=== PATIENT | female | born 1950 | race Caucasian/White ===

== ENCOUNTER 2016-07-29 18:17 | Observation (INO) | payer MEDICARE ==
[~2016-07-29] VITALS: Ht 165.1 cm; Wt 53.5 kg
--- NOTE | ~2016-07-29 | HEMODYNAMI ---
PATIENT:DAIANA BARTLETT MEDICAL RECORD: [id number] : 46 [facility] [id number] ADMISSION DATE: 07/29/16 Generatedon:07/30/201610:31 Patient name: DAIANA BARTLETT Patient #: [id number] SSN: : 1950 Date of study: 07/30/2016 Page: Of Hemodynamic Procedure Report Patient Data Patient Demographics Procedure consent was obtained First Name: DAIANA Gender: Female Last Name: DHRUV : 1950 Patient #: [id number] Age: 65 year(s) Race: Additional ID: [id number] Contact details [address]: [address] [place] [address] [place] State: [place] City: [place] Zip code: [address] Past Medical History Allergies: No known allergies Admission Admission Data Admission Date: 07/29/2016 Admission Time: 23:29 Room #: 2124 Lab Results Lab Result Date: 07/29/2016 Lab Result Time: 9:45 Biochemistry Name Units Result Min Max BUN mg/dl 31 --(----)-* 7 18 Creatinine mg/dl 1.2 --(---*)-- 0.6 1.3 CBC Name Units Result Min Max Hematocrit % 45.7 --(-*--)-- 42 54 Hemoglobin g/dl 14.4 --(*---)-- 13.5 17.5 Procedure Procedure Types Cath Procedure Diagnostic Procedure [facility] w/Coronaries Miscellaneous Procedures Moderate Sedation up to 45 minutes Procedure Description Procedure Date Procedure Date: 07/30/2016 Procedure Start Time: 10:17 Procedure End Time: 10:29 Procedure Staff Name Function Hardeep Herrera MD Performing Physician Antoinette Gary RT Scrub Anmol Arias RN Nurse Nino Collier RT Monitor Procedure Data Cath Procedure Fluoroscopy Diagnostic fluoroscopy Total fluoroscopy Time: 2.5 time: 2.5 min min Diagnostic fluoroscopy Total fluoroscopy dose: 250 dose: 250 mGy mGy Contrast Material Contrast Material Type Amount (ml) Isovue 300 60 Entry Location Entry Primary Successful Side Size Upsize Upsize Entry Closure Benavides ccessful Closure Location (Fr) 1 (Fr) 2 (Fr) Remarks Device Remarks Radial Right 6 Fr Mechanical artery Short Compression Estimated blood loss: 5 ml Diagnostic catheters Device Type Used For End Catheter Placement Medtronic Dexterity 5Fr Procedure LOOMIS 4.0 catheter (NO CHARGE) Medtronic Dexterity 5Fr Procedure TRAP 4.0 catheter (NO CHARGE) Procedure Complications No complications Procedure Medications Medication Administration Route Dosage Oxygen NC 2 l/min Heparin Flush Bag added to field 2 bags (1000units/500ml NS) 0.9% NaCl I.V. 100 ml/hr Radial Cocktail added to field 1 syringe (Verapomil 2mg/Nitro 400mcg/Heparin 1500units) Plavix P.O. 75 mg Fentanyl I.V. 50 mcg Versed I.V. 1 mg Fentanyl I.V. 50 mcg Versed I.V. 1 mg Fentanyl I.V. 50 mcg Fentanyl I.V. 50 mcg Versed I.V. 1 mg Radial Cocktail I.A. 1 syringe (Verapomil 2mg/Nitro 400mcg/Heparin 1500units) Hemodynamics Rest HGB: 14.4 (g/dl) Heart Rate: 71 (bpm) Pressure Samples Time Site Value (mmHg) Purpose Heart Use Rate(bpm) 10:20 LV 112/24,13 Snapshot 96 10:21 AO 139/73(103) Pullback 83 10:21 LV 139/12,14 Pullback 83 Gradients Valve Time Site 1 Site 2 Mean SEP/DFP Peak To Heart Use (mmHg) (sec/min) Peak Rate (mmHg) (bpm) Aortic 10:21 LV AO 5 23 0 83 139/12,14 139/73(103) Calculations Valve P-P Mean Valve Index Valve Source Name Gradient Area Flow (cm2) Aortic 0 5 0 5 Snapshots Pre Cath Intra NCS Post Cath Vital Signs Time Heart Resp SPO2 NIBP (mmHg) Rhythm Pain Sedation Rate (ipm) (%) Status Level (bpm) 9:47:15 76 18 93 173/98(142) NSR 0 (11) 10(A) , No pain 9:51:29 75 17 95 182/94(140) NSR 0 (11) 10(A) , No pain 9:55:45 86 19 96 174/96(121) NSR 0 (11) 10(A) , No pain 10:00:01 79 20 95 178/97(125) NSR 0 (11) 10(A) , No pain 10:04:19 75 20 93 181/88(109) NSR 0 (11) 10(A) , No pain 10:08:41 76 18 94 162/81(120) NSR 0 (11) 9(A) , No pain 10:12:55 79 18 94 151/82(120) NSR 0 (11) 9(A) , No pain 10:17:05 82 17 95 148/83(114) NSR 0 (11) 9(A) , No pain 10:21:17 85 16 94 127/75(103) NSR 0 (11) 9(A) , No pain 10:25:25 76 20 94 130/66(102) NSR 0 (11) 9(A) , No pain 10:29:33 75 18 94 135/70(102) NSR 0 (11) 9(A) , No pain Medications Time Medication Route Dose Verified Delivered Reason Notes Effectiveness by by 9:51:05 Oxygen NC 2 l/min Anmol Anmol Per Hugo Arias RN physician RN 9:51:14 Heparin Flush added 2 bags Anmol Henningy used for Bag to Hugo Arias dry primer powder blender (1000units/500ml RN NS) 9:51:23 0.9% NaCl I.V. 100 Anmol Anmol Per ml/hr Hugo Arias RN physician RN 9:51:31 Radial Cocktail added 1 Anmol Anmol used for (Verapomil to syringe Hugo Arias dry primer powder blender 2mg/Nitro RN 400mcg/Heparin 1500units) 9:52:02 Plavix P.O. 75 mg Anmol Anmol for Hugo Arias RN antiplatelet RN therapy 10:03:53 Fentanyl I.V. 50 mcg Anmol Anmol for sedation Hugo Arias RN RN 10:04:00 Versed I.V. 1 mg Anmol Anmol for sedation Hugo Arias RN RN 10:05:32 Fentanyl I.V. 50 mcg Anmol Anmol for sedation Hugo Arias RN RN 10:05:40 Versed I.V. 1 mg Anmol Anmol for sedation Hugo Arias RN RN 10:08:20 Fentanyl I.V. 50 mcg Anmol Corea for sedation Hugo Arias RN RN 10:15:27 Fentanyl I.V. 50 mcg Anmol Corea for sedation Hugo Arias RN RN 10:17:12 Versed I.V. 1 mg Anmol Corea for sedation Hugo Arias RN RN 10:19:42 Radial Cocktail I.A. 1 Anmol Meier for (Verapomil syringe Hugo Lawrence 2mg/Nitro [facility] 400mcg/Heparin 1500units) Procedure Log Time Note 9:20:34 Anmol Arias RN sent for patient. Start room use. 9:27:35 Time tracking: Regular hours 9:27:38 Plan of Care:Hemodynamics will remain stable., Cardiac rhythm will remain stable., Comfort level will be maintained., Respiratory function will remain adequate., Patient/ family verbilizes understanding of procedure., Procedure tolerated without complication., Recovers from procedure without complications.. 9:36:12 Patient received from CVICU to [facility] 2 Alert and oriented. Tansferred to table in Supine position. 9:36:14 Warm blankets applied, and stephie hugger turned on for patient comfort. 9:36:14 Correct patient and procedure confirmed by team. 9:36:15 Signed procedure consent form obtained from patient. 9:36:16 ECG and BP/O2 sat monitors applied to patient. 9:36:17 Full Disclosure recording started 9:46:12 Vital chart was started 9:51:05 Oxygen 2 l/min NC was administered by Anmol Arias RN; Per physician; 9:51:14 Heparin Flush Bag (1000units/500ml NS) 2 bags added to field was administered by Anmol Arias RN; used for procedure; 9:51:23 0.9% NaCl 100 ml/hr I.V. was administered by Anmol Arias RN; Per physician; 9:51:31 Radial Cocktail (Verapomil 2mg/Nitro 400mcg/Heparin 1500units) 1 syringe added to field was administered by Anmol Arias RN; used for procedure; 9:51:41 Baseline sample Acquired. 9:51:49 Rhythm: sinus rhythm 9:52:02 Plavix 75 mg P.O. was administered by Anmol Arias RN; for antiplatelet therapy; 9:53:14 H&P Date Dictated: 07/30/2016 Within 30 days and on chart.. 9:53:26 Pre-procedure instructions explained to patient. 9:53:27 Pre-op teaching completed and patient verbalized understanding. 9:53:59 Family in waiting room. 9:54:01 Patient NPO since Midnight. 9:54:10 Patient allergic to No known allergies 9:54:13 Is the patient allergic to Iodine/contrast media? No. 9:54:15 Is patient on blood thinner?Yes 9:54:17 ACC The patient was administered the following blood thiners within the last 24 hours: ACCPlavix 9:54:18 Patient diabetic? No. 9:54:21 Previous problem with sedation/anesthesia? No ? 9:54:22 Snore? Yes 9:54:22 Sleep apnea? No 9:54:23 Deviated septum? No 9:54:25 Opens mouth fully? Yes 9:54:25 Sticks out tongue? Yes 9:54:29 Airway obstruction? Yes copd 9:54:33 Dentures? Yes OUT 9:54:36 Modified Melvin's test Ulnar < 7 seconds 9:54:38 Patient pain scale 0/10 ?. 9:58:01 IV left forearm D/C'd due to infiltration. 9:58:11 IV started by Anmol Arias RN inleft forearm with a 22 gauge IV catheter with 0.9% NaCl at KVO. 9:58:23 22g IV Catheter opened to sterile field. 9:59:07 Lab Result : BUN 31 mg/dl 9:59:07 Lab Result : Creatinine 1.2 mg/dl 9:59:07 Lab Result : Hemoglobin 14.4 g/dl 9:59:07 Lab Result : Hematocrit 45.7 % 9:59:09 Lab results completed and on chart. 9:59:11 Right Radial & Right Groin area was prepped with chlora-prep and draped in sterile fashion 9:59:13 Alarms reviewed by R. N. 9:59:13 Sharps counted by scrub and verified by R.N. 9:59:15 Use device set Radial Dx 9:59:17 MBrace Wrist Support opened to sterile field. 9:59:18 Tegaderm 4 x 4 opened to sterile field. 9:59:18 Acist Manifold opened to sterile field. 9:59:19 Acist Hand Control opened to sterile field. 9:59:20 Acist Syringe opened to sterile field. 9:59:20 Medline Cath Pack opened to sterile field. 9:59:21 Bag Decanter opened to sterile field. 9:59:21 Terumo 6Fr Slender Glidesheath opened to sterile field. 9:59:22 St Hamilton 260cm J .035 wire opened to sterile field. 9:59:27 Physician arrived :59:28 --------ALL STOP TIME OUT------ 9:59:28 Final Timeout: patient, procedure, and site verified with staff and physician. All members of the team are in agreement. 9:59:29 Right Radial & Right Groin site verified by team. 9:59:33 Physical assessment completed. ASA score P 2 - A patient with mild systemic disease as per Hardeep Herrera MD. 9:59:36 Sedation plan: IV Moderate Sedation Versed, Fentanyl 10:03:08 Zero performed for pressure channel P1 10:03:44 IV Extension Set opened to sterile field. 10:03:53 Fentanyl 50 mcg I.V. was administered by Anmol Arias RN; for sedation; 10:04:00 Versed 1 mg I.V. was administered by Anmol Arias RN; for sedation; 10:05:32 Fentanyl 50 mcg I.V. was administered by Anmol Arias RN; for sedation; 10:05:40 Versed 1 mg I.V. was administered by Anmol Arias RN; for sedation; 10:08:20 Fentanyl 50 mcg I.V. was administered by Anmol Arias RN; for sedation; 10:15:27 Fentanyl 50 mcg I.V. was administered by Anmol Arias RN; for sedation; 10:17:12 Versed 1 mg I.V. was administered by Anmol Arias RN; for sedation; 10:17:41 Procedure started. 10:17:46 Local anesthetic to right radial artery with Lidocaine 2% by Hardeep Herrera MD.INITIAL ACCESS ONLY 10:18:02 A 6 Fr Short sheath was inserted into the Right Radial artery 10:19:42 Radial Cocktail (Verapomil 2mg/Nitro 400mcg/Heparin 1500units) 1 syringe I.A. was administered by Hardeep Herrera MD; for vasodilation; 10:19:56 A Medtronic Dexterity 5Fr LOOMIS 4.0 catheter (NO CHARGE) was advanced over the wire and used for Procedure. 10:20:46 LV gram done using MELENDEZ 10:20:47 LV hemodynamics recorded. 10:20:49 Injector settings: Ml/sec: 5, Volume: 15, 10:20:54 EF : 55 % 10:22:18 Catheter removed. unable to cannulate vessel. 10:23:28 A Medtronic Dexterity 5Fr TRAP 4.0 catheter (NO CHARGE) was advanced over the wire and used for Procedure. 10:24:07 LCA angiography performed. 10:26:23 Catheter removed. 10:26:30 Terumo TR Band Standard opened to sterile field. 10:26:39 Sheath removed intact; hemostasis achieved with Mechanical Compression to the Right Radial artery. 10:26:42 Procedure ended.(Physican Out) 10::53 Fluoroscopy time 02.50 minutes. 10::58 Fluoroscopy dose: 250 mGy 10::58 Flurop Dose total: 250 10:27:54 Contrast amount:Isovue 300 60ml. 10:27:56 Sharps counted by scrub and verified by R.N. 10:27:58 TR band inflated with 11cc of air. 10:27:59 Insertion/operative site no bleeding no hematoma. 10:28:08 Post right radial artery:stable, clean and dry 10:28:10 Post Procedure Pulses reassessed and unchanged 10:28:12 Post-procedure physical assessment completed. ASA score P 2 - A patient with mild systemic disease as per Hardeep Herrera MD. 10:28:15 Post procedure rhythm: unchanged. 10:28:18 Estimated blood loss: 5 ml 10:28:19 Post procedure instruction explained to patient.Patient verbalizes understanding. 10:28:19 Post procedure instruction explained to patient.Patient verbalizes understanding. 10:28:22 Patient needs reinforcement of post procedure teaching. 10:28:53 Procedure type changed to Cath procedure, Diagnostic procedure, LHC, LHC w/Coronaries, Miscellaneous Procedures, Moderate Sedation up to 45 minutes 10:28:55 Procedure and supply charges have been captured, reviewed, submitted and are correct. 10:29:21 Procedure Complication : No complications 10:29:29 Vital chart was stopped 10:29:30 See physician's report for complete and final results. 10:29:31 Report given to PCU. 10:29:33 Patient transfered to PCU with Stretcher. 10:29:35 Procedure ended. 10:29:35 Full Disclosure recording stopped 10:29:45 End room use (Document Last) Device Usage Item Name Manufacture Quantity Catalog Hospital Part Current Minimal Lot# / Number Charge Number Stock Stock Serial# Code 22g IV B. Tellez 1 [id number] 296287 888250 5 Catheter MBrace Advanced 1 [id number] 035596 56007 348889 5 Wrist Vascular Support Dynamics Tegaderm 4 3M 1 1626W 142848 322452 005762 5 x 4 Acist Acist 1 34573 058089 204951 981441 5 Manifold Medical Systems Inc Acist Hand Acist 1 98933 795935 566985 479058 5 Control Medical Systems Inc Acist Acist 1 51841 470267 397429 657469 20 Syringe Medical Systems Inc Medline Cardinal 1 [id number] 915556 15823 802625 5 Cath Pack Health Bag Microtek 1 2002S 779783 17940 152236 5 Decanter Medical Inc. Terumo 6Fr Terumo 1 [id number] 537042 506788 321399 [address] [facility] Hamilton 1 236116 888137 395234 299381 30 260cm J .035 wire IV Hospira 1 50959-66 216252 81337 427949 5 Extension Set Medtronic Medtronic 1 [id number] 136707 812094 5 Dexterity 5Fr LOOMIS 4.0 catheter (NO CHARGE) Medtronic Medtronic 1 [id number] 153177 350877 5 Dexterity 5Fr TRAP 4.0 catheter (NO CHARGE) Terumo TR Terumo 1 [id number] 920694 381726 932464 40 Band Standard Signature Audit [place] Stage Time Signature Unsigned Intra-Procedure 07/30/2016 Nino Collier 10:31:54 AM RT(R) Signatures Monitor : Nino Collier RT Signature : Date : Time : [id number] [place] [address]
--- NOTE | ~2016-07-29 | OP ---
PATIENT NAME: DAIANA BARTLETT MEDICAL RECORD: [id number] :46 LOCATION:D.M2 D.2124 ADMISSION DATE:07/29/16 SURGEON: SANTOS BEDOYA MD DATE OF OPERATION: 07/30/2016 PROCEDURES: Left heart catheterization, selective coronary angiography, right femoral artery approach and right radial artery approach. CATHETERS: A 5-Mongolian sheath, Mobile catheter. The procedure was well tolerated and the patient returned to the oneill. Sheath was removed. TR band was placed. FINDINGS: Left ventriculography in 30-degree MELENDEZ view: Normal wall motion and normal systolic function. CORONARY ANATOMY: Left main: Left main is free of disease. LAD: Free of disease. CIRCUMFLEX: Free of disease. RIGHT CORONARY ARTERY: Area of previous stenting is free of disease. IMPRESSION: Normal systolic function, no evidence of restenosis. No progression of [place] disease. Suspect demand ischemia secondary to obstructive pulmonary disease. TRANSINT:[id number] Voice Confirmation ID: [id number] DOCUMENT ID: [id number] SANTOS BEDOYA MD CC: [id number] DICTATION DATE: 07/30/16 1032 POPCORN CANDY MAKER: 07/30/16 1810 DIS IN 07/30/16 [facility] [address] [id number]
--- NOTE | ~2016-07-29 | HP ---
PATIENT: DAIANA BARTLETT MEDICAL RECORD: [id number] ACCOUNT: [id number] LOCATION:[address] : [birth year] ADMISSION DATE: 07/29/16 HISTORY AND PHYSICAL EXAMINATION HISTORY OF PRESENT ILLNESS: A 65-year-old lady with known history of coronary artery disease, status post intervention, this was done in [place], a longstanding smoking history, COPD on home O2, onset of chest pain yesterday. Has been doing fairly well, doing pulmonary rehabilitation exercises, was presented to the ER with chest pain, found to have positive enzymes ECG shows no acute changes. We are asked to see her concerning her cardiovascular status. PAST MEDICAL HISTORY: 1. History of coronary artery disease as described above. 2. Obstructive pulmonary disease. 3. Osteoarthritis. 4. Dyslipidemia. 5. Chronic pain. ALLERGIES: None known. SOCIAL HISTORY: Lives here in [place], moved in from [place], is able to take care of all ADLs at a slow pace, does try to do coronary rehab exercise on a daily basis. MEDICATIONS: 1. ProAir 2 puffs q.i.d., Flexeril 10 t.i.d. 2. Plavix 75 q. day. 3. Lyrica 75 b.i.d. 4. Oxycodone 80 b.i.d. 5. Boniva 150. REVIEW OF SYSTEMS: The patient reports easy bruising but reports no swollen glands. The patient reports no fever, no night sweats, no significant weight gain, no significant weight loss. No significant exercise tolerance. The patient reports no dry eyes, no irritation, no vision change. Patient reports no difficulty hearing and no ear pain. Patient reports no frequent nose bleeds or nose and sinus problems. Patient reports on arm pain on exertion. No shortness of breath while lying down. No history of heart murmur. Patient reports no cough, no wheezing or coughing up blood. Patient reports no abdominal pain, no vomiting. Normal appetite. No diarrhea and not vomiting blood. No nausea and no constipation. Patient reports no incontinence. No difficulty urinating. No hematuria. No increased frequency. Patient reports no muscle aches. No weakness, no arthralgias, no back pain. No swelling of the extremities. Patient reports no abnormal mole, no jaundice, no rashes. Reports no loss of consciousness. No weakness and no numbness. No seizures, dizziness, or headaches. The patient reports no depression, no sleep disturbance, feeling safe in a relationship and no alcohol abuse. Patient reports on fatigue. Reports no runny nose or sinus pressure. No itching, no hives, and no frequent sneezing. PHYSICAL EXAMINATION: GENERAL: Pleasant female in no acute distress, appears stated age. Blood pressure 120/62, pulse 80 and regular. HEENT: Normocephalic, atraumatic. HISTORY AND PHYSICAL [id number] DHRUV,DAIANA NECK: No JVD or bruit. HEART: Regular, II/ systolic ejection murmur. LUNGS: Slightly prolonged expiratory phase with expiratory wheezes. ABDOMEN: Soft and nontender. EXTREMITIES: Pulses 2+. No edema. NEUROLOGIC: Grossly intact. DIAGNOSTIC DATA: ECG without acute change. IMPRESSION: Acute coronary syndrome, known history of coronary artery disease. PLAN: Angiography, intervention based. TRANSINT:[id number] Voice Confirmation ID: [id number] DOCUMENT ID: [id number] SANTOS BEDOYA MD CC: [id number] DICTATION DATE: 07/30/16820 ANIMAL BREEDER: 07/30/16945 ADM IN [facility] [address] [place] [address]
[~2016-07-29 18:17] MED LIST: BONIVA150 MG PO; CYMBALTA30 MG PO; DALIRESP500 MCG PO; FLORAJEN3 CAPS460 MG PO; IPRAT-ALBUT 0.5-3 ML UPD; LOPRESSOR25 MG PO; LYRICA75 MG PO; OMNICEF300 MG PO; OXY IR30 MG PO; OXYBUTYNIN CHLOR5 MG PO; OXYCODONE HCL5 MG PO; OXYCONTIN40 MG PO; OXYCONTIN80 MG PO; PREDNISONE20 MG PO; PROAIR HFA8.5 GM INH; SINGULAIR10 MG PO; SPIRIVA18 MCG INH; TEMAZEPAM30 MG PO; VIBRAMYCIN 100100 MG PO; ZANTAC150 MG PO
[2016-07-29 22:10] LABS: BASOPHILS 0.1 % (0-2); EOSINOPHILS 1.7 % (0-7); HEMATOCRIT 45.7 % (36.0-48.0); HEMOGLOBIN 14.4 g/dL (12-16); IMMATURE GRANULOCYTES 0.1 % (0-5); LYMPHOCYTES 23.6 % (15-50); MCH 28.6 pg (26.0-34.0); MCHC 31.5 g/dL (31.0-37.0); MCV 90.9 fL (80.0-100.0); MEAN PLATELET VOLUME 10.8 fL (7.4-10.4); MONOCYTES 11.7 % (2-11); NEUTROPHILS 62.8 % (40-80); RBC 5.03 10x6/uL (4.00-5.40); RDW 16.2 % (11.5-14.5); WBC 7.7 10x3/uL (4.8-10.8)
[2016-07-29 22:18] LABS: PLATELET COUNT 174 10x3/uL (130-400)
[2016-07-29 22:41] LABS: CALCIUM 9.7 mg/dL (8.5-10.1); CARBON DIOXIDE 33.2 mmol/L (21.0-32.0); CHLORIDE - SERUM 97 mmol/L (98-107); CKMB 11.3 U/L (0.0-3.6); CREATININE - SERUM 1.2 mg/dL (0.6-1.3); POTASSIUM - SERUM 4.1 mmol/L (3.5-5.1); SODIUM 136 mmol/L (136-145); UREA NITROGEN 31 mg/dL (7-18); eGFR NON AFRICAN AMERICAN 47 mL/min (90-120)
[2016-07-29 22:44] LABS: CALC OSMOLALITY 278 mosm/kg (275-300); CREATINE KINASE 1591 UL (21-215); GLUCOSE 101 mg/dL (74-106)
[2016-07-29 22:46] LABS: TROPONIN-I 0.277 ng/mL (0.000-0.060)
--- NOTE | 2016-07-30 00:41 | NUR ---
received from er via wheelchair,IV-LFA, TELEMTRY IN ON, VITALS ARE STABLE, 02-2L, BED IS LOW, SRX2, AT BEDSIDE, CALL LIGHT IN REACH, WILL MONITOR
[2016-07-30 00:57] VITALS: BP 134/62; BMI 19.7
[2016-07-30] MEDS ORDERED: CYCLOBENZAPRINE10 MG PO (00:57)
[2016-07-30] MEDS ORDERED: PLAVIX75 MG PO (00:59)
--- NOTE | 2016-07-30 02:39 | NUR ---
EKG COMPLETE, DENIES ANY NEEDS, CALL LIGHT IN REACH, BED ALARM ON, WILL CONTINUE WITH CARE OF PLAN
[2016-07-30 06:05] VITALS: BP 120/62
[2016-07-30 08:40] VITALS: BP 152/67
--- NOTE | 2016-07-30 09:39 | NUR ---
CONSENTS SIGNED. PRE-OPS GIVEN. TO SUPERVISOR COOK ROOM BY BED.
--- NOTE | 2016-07-30 10:52 | NUR ---
BACK FROM HISTOLOGIC AIDE. VS WNL. RIGHT WRIST STABLE WITH TR BAND INTACT. WILL MONITOR.
[2016-07-30 11:03] LABS: CALCIUM 9.3 mg/dL (8.5-10.1); CREATININE - SERUM 1.1 mg/dL (0.6-1.3)
[2016-07-30 11:14] LABS: CARBON DIOXIDE 20.9 mmol/L (21.0-32.0); POTASSIUM - SERUM 4.9 mmol/L (3.5-5.1)
[2016-07-30 12:31] VITALS: BP 147/76
[2016-07-30 12:42] VITALS: Ht 165.1 cm; Wt 53.5 kg
[2016-07-30 12:42] LABS: BASOPHILS 0.2 % (0-2); EOSINOPHILS 0 % (0-7); HEMATOCRIT 43.6 % (36.0-48.0); HEMOGLOBIN 15.2 g/dL (12-16); IMMATURE GRANULOCYTES 0.2 % (0-5); LYMPHOCYTES 12.9 % (15-50); MCH 31.8 pg (26.0-34.0); MCHC 34.9 g/dL (31.0-37.0); MCV 91.2 fL (80.0-100.0); MEAN PLATELET VOLUME 10.7 fL (7.4-10.4); MONOCYTES 3.7 % (2-11); PLATELET COUNT 141 10x3/uL (130-400); RBC 4.78 10x6/uL (4.00-5.40); RDW 15.8 % (11.5-14.5); WBC 5.1 10x3/uL (4.8-10.8)
--- NOTE | 2016-07-30 13:32 | NUR ---
TR BAND DCD WITHOUT BLEEDING OR HEMATOMA NOTED. WILL MONITOR.
--- NOTE | 2016-07-30 13:42 | NUR ---
IV AND TELEMTRY DCD. DC PLANS GIVEN. UNDERSTANDING VOICED. ESCORTED TO CAR BY W/C.
== END 2016-07-30 13:52 | disposition home or self-care (01) ==
LOC: D.ER 18:17 → OBSVTIME 23:29 → D.M2 23:29
PROVIDERS: Family Medicine; Nurse Practitioner Acute Care; ADMIT Internal Medicine Interventional Cardiology
DX: I24.8 Other forms of acute ischemic heart disease (principal); I25.10 Atherosclerotic heart disease of native coronary artery without angina pectoris; E78.5 Hyperlipidemia, unspecified; M19.90 Unspecified osteoarthritis, unspecified site; G89.29 Other chronic pain

== ENCOUNTER 2016-08-14 02:11 | Inpatient (IN) | payer MEDICARE, OTHER ==
[~2016-08-14] VITALS: Ht 162.6 cm; Wt 56.7 kg
--- NOTE | ~2016-08-14 | CN ---
PATIENT NAME:DAIANA BARTLETT MEDICAL RECORD: [id number] : 46 LOCATION:D.[address] ADMIT DATE: 08/14/16 ACCOUNT: [id number] CONSULTING PHYSICIAN: DIMITRY JARA MD REFERRING PHYSICIAN: MARGARITO JOY MD DATE OF CONSULTATION: 08/20/2016 Gastroenterology Consultation REFERRING PHYSICIAN: Margarito Joy MD. RESOURCE ANALYST: Dr. Arteaga on an unassigned patient. HISTORY OF PRESENT ILLNESS: The patient is a 65-year-old white female who is basically admitted to the ER with decreased mental status changes. She was found to have marked elevation of her liver enzymes in the thousands. I was asked to see the patient in this regard. She is actually admitted to the hospital about 5 days ago. Her AST was 9000 and her ALT was 6000. Every day, her liver enzymes have improved and currently, her total bilirubin 0.8, AST 62, ALT is 49, alkaline phosphatase 116, albumin 2.5. Ultrasound of the gallbladder reveals some sludge, but otherwise negative other than fatty liver and a right pleural effusion. Abdominal CT reveals a possible left lower lobe pneumonia as well as sludge in her gallbladder. The patient has no past history of liver disease and no history of any alcohol use. She denies any abdominal pain, nausea or vomiting. She is tolerating a regular diet. ALLERGIES: STADOL, PHENERGAN. PAST MEDICAL HISTORY: Remarkable for seizures, fibromyalgia, hypertension, coronary artery disease, status post PTCA. She also has CHF; COPD, is on BiPAP/CPAP at her home. She also has some reflux, depression, anxiety. PAST SURGICAL HISTORY: Remarkable for hysterectomy, exploratory laparotomy for unclear reasons. She has had a right hip surgery and back surgery. HOME MEDICATIONS: Include Lyrica, OxyContin, DuoNeb, Boniva, ProAir, temazepam, Flexeril, and Plavix. FAMILY HISTORY: Negative for GI disease. SOCIAL HISTORY: The patient is a longtime smoker. She denies alcohol use. REVIEW OF SYSTEMS: Noncontributory other than HPI. PHYSICAL EXAMINATION: GENERAL: Reveals a well-developed, well-nourished white female in no acute distress. VITAL SIGNS: Stable. She is afebrile. CHEST: Clear. HEART: Regular rate and rhythm. ABDOMEN: Soft, nontender. EXTREMITIES: There is no edema. CONSULT REPORT [id number] DAIANA BARTLETT LABORATORY DATA: Reveals white count 6000, hematocrit 42, MCV of 92, platelet count 120,000. Electrolytes normal. BUN 9, creatinine 1.4. Liver enzymes are as above. Ammonia levels 22. INR is 2.85. Urine drug screen is positive for opiates and benzodiazepines. UA is negative. X-RAY DATA: As above. IMPRESSION: Marked elevation of liver enzymes on admission, now much improved. This looks almost certainly due to shock liver. She has no past history of liver disease, alcohol history or taking any meds that could do this while I can tell. She is asymptomatic from GI standpoint and wants to go home. RECOMMENDATION: 1. Agree with present care. 2. Okay for discharge planning from GI standpoint. 3. I will order some routine liver labs as baseline, but I expect them all to be negative. 4. We will see on a p.r.n. basis. TRANSINT:[id number] Voice Confirmation ID: [id number] DOCUMENT ID: [id number] DIMITRY JARA MD CC: MARGARITO JOY MD [id number] DICTATION DATE: 08/20/16 1317 PLATE ROLLER: 08/20/16 1402 ADM IN [facility] [address] [id number]
[~2016-08-14 02:11] MED LIST changes: +CYCLOBENZAPRINE10 MG PO; +PLAVIX75 MG PO
[2016-08-14 03:07] LABS: BASOPHILS 0.1 % (0-2); EOSINOPHILS 0.2 % (0-7); HEMATOCRIT 44.9 % (36.0-48.0); HEMOGLOBIN 14.2 g/dL (12-16); IMMATURE GRANULOCYTES 0.3 % (0-5); LYMPHOCYTES 5.5 % (15-50); MCH 28.5 pg (26.0-34.0); MCHC 31.6 g/dL (31.0-37.0); MEAN PLATELET VOLUME 10.6 fL (7.4-10.4); MONOCYTES 3.8 % (2-11); NEUTROPHILS 90.1 % (40-80); PLATELET COUNT 130 10x3/uL (130-400); RBC 4.99 10x6/uL (4.00-5.40); RDW 18.3 % (11.5-14.5); WBC 15.7 10x3/uL (4.8-10.8)
[2016-08-14 03:25] LABS: ALBUMIN 3.2 g/dL (3.4-5.0); ALKALINE PHOSPHATASE 161 U/L (46-116); BILIRUBIN - TOTAL 2.58 mg/dL (0.2-1.3); CALCIUM 7.7 mg/dL (8.5-10.1); CHLORIDE - SERUM 97 mmol/L (98-107); CREATININE - SERUM 2.2 mg/dL (0.6-1.3); POTASSIUM - SERUM 4.4 mmol/L (3.5-5.1); PROTEIN - SERUM 6.2 g/dL (6.4-8.2); SODIUM 138 mmol/L (136-145); UREA NITROGEN 50 mg/dL (7-18); eGFR NON AFRICAN AMERICAN 24 mL/min (90-120)
[2016-08-14 03:27] LABS: CALC OSMOLALITY 288 mosm/kg (275-300); GLUCOSE 102 mg/dL (74-106)
[2016-08-14 03:39] LABS: ALT (SGPT) 4604 U/L (10-68)
[2016-08-14 04:08] LABS: INR 2.85 (0.85-1.17); PROTIME 30.2 SECONDS (11.6-15.0)
[2016-08-14 04:29] LABS: AMYLASE - SERUM 30 U/L (25-115); CKMB 26.7 U/L (0.0-3.6); LIPASE 118 U/L (73-393); PRO BNP 7646 pg/mL (0-125)
[2016-08-14 04:34] LABS: CREATINE KINASE 1140 UL (21-215)
[2016-08-14 04:35] LABS: TROPONIN-I 1.096 ng/mL (0.000-0.060)
[2016-08-14 07:08] LABS: UDS - AMPHET NEGATIVE QUAL (NEGATIVE); UDS - BARB NEGATIVE QUAL (NEGATIVE); UDS - BENZO POSITIVE QUAL (NEGATIVE); UDS - COCAINE NEGATIVE QUAL (NEGATIVE); UDS - METH NEGATIVE QUAL (NEGATIVE); UDS - OPIATE POSITIVE QUAL (NEGATIVE); UDS - PCP NEGATIVE QUAL (NEGATIVE); UDS - THC NEGATIVE QUAL (NEGATIVE)
--- NOTE | 2016-08-14 07:10 | NUR ---
PT REPORT REC'D FROM [facility], IN ER. ROOM READY AND AWAITING PT ARRIVAL.
[2016-08-14 07:26] LABS: APPEARANCE CLEAR (CLEAR); BILIRUBIN NEGATIVE (NEGATIVE); COLOR DK YELLOW (YELLOW); GLUCOSE NEGATIVE (NEGATIVE); KETONE NEGATIVE (NEGATIVE); LEUKOCYTE ESTERASE TRACE (NEGATIVE); NITRITE NEGATIVE (NEGATIVE); PROTEIN TRACE mg/dL (NEGATIVE); SPECIFIC GRAVITY 1.015 (1.005-1.020); UROBILINOGEN NORMAL (NORMAL)
[2016-08-14 07:27] LABS: BACTERIA FEW /hpf (NONE SEEN); EPITHELIAL CELLS RARE /hpf (0-5); HYALINE CAST RARE /lpf (NONE SEEN); MUCUS <1+ /lpf (NONE SEEN); RED CELLS - URINE 0-5 /hpf (0-5); WHITE CELLS - URINE RARE /hpf (0-5)
[2016-08-14 07:28] LABS: AMORPHOUS SEDIMENT <1+ /lpf (NONE SEEN)
--- NOTE | 2016-08-14 07:53 | NUR ---
PT REC'D TO ROOM VIA STRETCHER. ACCOMPANIED BY HOSPITAL STAFF. ALERT TO SELF AND SITUATION ONLY. EASILY REORIENTED. FALLS BACK ASLEEP EASILY. PIV TO L FOREARM FREE OF REDNESS AND SWELLING AND FLUSHES W/O RESISTENCE. KAUR CATHETER IN PLACE DRAINING TO GRAVITY. URINE IS SABA W/O SEDIMENT. TELEMETRY PLACED ON AT THIS TIME. BED LOW, CALL LIGHT IN REACH, DENIES NEEDS. CPOC.
[2016-08-14 08:18] VITALS: BP 149/55
[2016-08-14 10:26] VITALS: BMI 21.5
[2016-08-14 11:52] VITALS: BP 131/59
--- NOTE | 2016-08-14 13:02 | NUR ---
SCD'S PLACED ON AT THIS TIME. AT BEDSIDE. UPDATE PROVIDED. PT SLEEPING WITH LUNCH TRAY AT BEDSIDE. BED LOW, CALL LIGHT IN REACH, DENIES NEEDS. CPOC.
[2016-08-14 16:28] VITALS: BP 143/56
--- NOTE | 2016-08-14 19:00 | NUR ---
PATIENT SUPINE IN BED. HOB 50 DEGREES. AAOX4. RR EVEN AND UNLABORED. O2 @ 3L VIA NC. 0 S/S OF DISTRESS. STATES PAIN IS A 10/10. IV TO LEFT FA PATENT WITH NO REDNESS OR SWELLING. KAUR SECURED WITH STATLOCK AND DRAINING TO GRAVITY. TELEMETRY ON. SCD'S ON. ISAC MAT ON. SRX2. BED LOW. CALL LIGHT WITHIN REACH.
[2016-08-14 20:00] VITALS: BP 157/79
--- NOTE | 2016-08-14 21:40 | NUR ---
NIHGTTIME MEDS GIVEN. PATIENT REQUESTING TEMAZEPAM FOR SLEEP. EXPLAINED TO PATIENT THAT I DID NOT WANT TO GIVE HER LYRICA, FLEXERIL, SCHEDULED OXYCOCONE, AND TEMAZEPAM AT THE SAME TIME DUE TO HER BEING SO LETHARGIC AND HARD TO AROUSE DURING DAY SHIFT. PATIENT STATED THAT SHE DOES NOT TAKE LYRICA AT NIGHT AND THAT SHE DIDN'T CARE ABOUT TAKING THE OXYCODONE LONG SHE COULD HAVE HER SLEEP MEDICATION. LYRICA AND OXYCODONE RETURNED. TEMAZEPAM GIVEN. DAUGHTER AT BEDSIDE.
[2016-08-15] VITALS: BP 132/52
[2016-08-15 04:00] VITALS: BP 148/63
[2016-08-15 05:55] LABS: BASOPHILS 0.1 % (0-2); EOSINOPHILS 2.7 % (0-7); HEMATOCRIT 40.6 % (36.0-48.0); HEMOGLOBIN 12.9 g/dL (12-16); IMMATURE GRANULOCYTES 0.1 % (0-5); LYMPHOCYTES 12.5 % (15-50); MCH 28.1 pg (26.0-34.0); MCHC 31.8 g/dL (31.0-37.0); MCV 88.5 fL (80.0-100.0); MEAN PLATELET VOLUME 11.1 fL (7.4-10.4); MONOCYTES 5.7 % (2-11); NEUTROPHILS 78.9 % (40-80); PLATELET COUNT 115 10x3/uL (130-400); RBC 4.59 10x6/uL (4.00-5.40); RDW 18.1 % (11.5-14.5)
[2016-08-15 06:24] LABS: WBC 8.2 10x3/uL (4.8-10.8)
[2016-08-15 06:49] LABS: ALBUMIN 2.4 g/dL (3.4-5.0); BILIRUBIN - TOTAL 1.7 mg/dL (0.2-1.3); CARBON DIOXIDE 31.2 mmol/L (21.0-32.0); MAGNESIUM - SERUM 1.3 mg/dL (1.8-2.4); PHOSPHOROUS 2.9 mg/dL (2.5-4.9); PROTEIN - SERUM 4.9 g/dL (6.4-8.2)
[2016-08-15 06:53] LABS: CREATININE - SERUM 1.2 mg/dL (0.6-1.3)
[2016-08-15 06:54] LABS: ANION GAP 10.3 mmol/L (8-16); POTASSIUM - SERUM 3.5 mmol/L (3.5-5.1)
[2016-08-15 08:07] VITALS: BP 131/61
--- NOTE | 2016-08-15 08:08 | NUR ---
RESTING QUIETLY UPON ENTERING ROOM. PATIENT AROUSED EASILY, THEN CLOSED HER EYES. INTRODUCED SELF TO PATIENT. SCDS TO BILATERAL LEGS, ISAC ALARM ON. PATIENT DENIES NEEDS. ASKED PATIENT IF SHE IS HAVING PAIN, SHE STATED "YES, IT IS ABOUT AN 8 IN MY BACK BECAUSE MY BOWELS NEED TO MOVE.
--- NOTE | 2016-08-15 09:04 | NUR ---
AM MEDS ADMINISTERED. VISITOR IN ROOM. CALL LIGHT IN REACH.
--- NOTE | 2016-08-15 10:39 | NUR ---
BROUGHT PATIENT A CUP OF 8OZ OF WARM PRUNE JUICE MIXED WITH SPRITE
--- NOTE | 2016-08-15 10:57 | NUR ---
LEAVING PATIENT'S SMART PHONE, IT IS ON THE TABLE BESIDE THE BED ON THE SECOND CHEF. SPOKE WITH , EXPLAINED IF ANYTHING HAPPENS TO IT THE HOSPITAL IS NOT RESPONSIBLE. VERBALIZED UNDERSTANDING, STATING "I KNOW, BUT SHE HAS TO HAVE A PHONE."
--- NOTE | 2016-08-15 11:16 | NUR ---
Patient Name: DAIANA BARTLETT Admission Status: ER Accout number: [id number] Admission Date: 08-14-2016 : 1950 Admission Diagnosis: Attending: DYLAN Current LOS: 1 Anticipated DC Date: 08-17-2016 Planned Disposition: Home Primary Insurance: MEDICARE A & B Discharge Planning Comments: CM MET WITH PATIENT AND SPOUSE (JOHN) REGARDING D/C NEEDS AND PLANS. PATIENTS SPOUSE STATED HE WILL DRIVE HER HOME AT DISCHARGE. PATIENTS HOME IS SAFE AND HAS 8 STEPS W/RAILS TO ENTER HOME AND NO STAIRS INSIDE. PATIENT STATED SHE IS INDEPENDENT WITH HER CARE AND HAS OXYGEN 2L HS, PORT O2, NEBULIZER, CANE, WALKER, SHOWER CHAIR, AND BS COMMODE AT HOME IF NEEDED. PATIENTS PCP IS DR. RENDON AND USES [facility] ON [address] PATIENT DENIES THE NEED FOR HOME HEALTH AND STATED SHE DOES NOT WANT IT AT THIS TIME. CM WILL CONTINUE TO FOLLOW PATIENT WITH D/C NEEDS AND PLANS. PCP DR. JUSTICE ADBI ON [address] [phone] JOHN (SPOUSE) [phone] ELISE (DAUGHTER) [phone] Plastic Parts Designer: Subha Ingrid Is the patient Alert and Oriented? Yes 0 * How many steps to enter\exit or inside your home? 8 W/RAILS 0 * PCP DR. RENDON 0 * Pharmacy [facility] ON [address] 0 * Preadmission Environment Home with Family 0 * ADLs Independent 0 * List name and contact numbers for known caregivers / representatives who currently or will assist patient after discharge: JOHN (SPOUSE) [phone] ELISE (DAUGHTER) [phone] 0 * Community resources currently utilized None 0 * Additional services required to return to the preadmission environment? Yes 0 * Can the patient safely return to the preadmission environment? Yes 0 * Has this patient been hospitalized within the prior 30 days at any hospital? No 0 Grand Total: 0
[2016-08-15 12:43] VITALS: Ht 162.6 cm; Wt 56.7 kg
[2016-08-15 13:03] VITALS: BP 117/71; BP 141/50
[2016-08-15 17:18] VITALS: BP 122/69; BP 141/63
[2016-08-15 20:00] VITALS: BP 172/74
[2016-08-16] VITALS: BP 173/114
--- NOTE | 2016-08-16 00:29 | NUR ---
PAGED DR. JUSTICE CARTER, RT REQUEST.
[2016-08-16 04:00] VITALS: BP 151/69
--- NOTE | 2016-08-16 05:23 | NUR ---
RESP. THERAPIST ENTERED RM TO GIVE TX 02 OFF, O2 SATS 49%.NOT VERBALLY RESPONSIVE APPEARS SEDATED. RESPONDS TO SL PAINFUL STIMULI.CARLOS MEEHAN RN FROM ICU HERE NO RESPONSE FROM DR. RENDON.AMP NORCAN GIVEN BY CARLOS MEEHAN RN .TALKING BUT SPEECH GARBLED.SATS 90%.
--- NOTE | 2016-08-16 05:24 | NUR ---
RN NOTE: PT RESTING QUIETLY AT THIS TIME. O2 IN USE VIA NC AT 3L WITH UNLABORED BREATHING. IV IN LEFT FA PATENT WITH NS INFUSING AT KVO. WILL CONTINUE TO MONITOR FOR NEEDS. CALL LIGHT WITHIN REACH.
[2016-08-16 05:29] LABS: BASOPHILS 0.2 % (0-2); EOSINOPHILS 1.8 % (0-7); HEMOGLOBIN 13.5 g/dL (12-16); IMMATURE GRANULOCYTES 0.3 % (0-5); LYMPHOCYTES 10.2 % (15-50); MCH 28.1 pg (26.0-34.0); MCHC 31.4 g/dL (31.0-37.0); MCV 89.4 fL (80.0-100.0); MEAN PLATELET VOLUME 10.2 fL (7.4-10.4); MONOCYTES 10.2 % (2-11); NEUTROPHILS 77.3 % (40-80); PLATELET COUNT 109 10x3/uL (130-400); RBC 4.81 10x6/uL (4.00-5.40); RDW 18.4 % (11.5-14.5); WBC 6.6 10x3/uL (4.8-10.8)
--- NOTE | 2016-08-16 05:33 | NUR ---
0100) RAPID CALLED 02 SATS 95% BUT DESATING QUICKLY.ANOTHER AMP NARCAN GIVEN IV BY CARLOS MEEHAN RN FROM ICU 02 SATS 95% O2 CONTINUES AT 3L/NC.EYES OPENS WHEN NAME CALLED.WILL CONTINUE TO MONITOR FOR ANY CHGES. IN STATUS AND FOLLOW CURRENT PLAN OF CARE.0445)DR. RENDON RETURNED CALL TALKED WITH CARLOS ESQUIVEL
[2016-08-16 06:16] LABS: ALBUMIN 2.5 g/dL (3.4-5.0); ANION GAP 11.6 mmol/L (8-16); BILIRUBIN - TOTAL 1.67 mg/dL (0.2-1.3); CARBON DIOXIDE 30.7 mmol/L (21.0-32.0); POTASSIUM - SERUM 3.3 mmol/L (3.5-5.1); PROTEIN - SERUM 4.8 g/dL (6.4-8.2)
[2016-08-16 06:21] LABS: CALCIUM 6.9 mg/dL (8.5-10.1)
--- NOTE | 2016-08-16 07:35 | NUR ---
PATIENT RECEIVED IN MID CASTELLON POSITION RESTING WITH EYES CLOSED. RESPIRATIONS EVEN AND UNLABORED. SIDE RAILS UP X2. BED IN LOW POSITION. CALL LIGHT IN REACH.
[2016-08-16 08:09] VITALS: BP 150/67
--- NOTE | 2016-08-16 08:23 | NUR ---
2100) prior to rapid discussed with patient to lets take oxy first and wait an hour then take lyrica or flexeril and wait a bit in between those states i talked to dr. lozada this morning and he said i could take my meds the way i took them at home.you can't keep my meds from me.attempted to redirect that not taking your meds from you just wanted to space them out a little as not to take that many narcotic at one time together.became very angry
--- NOTE | 2016-08-16 10:22 | NUR ---
ALERT IN BED WITH FAMILY PRESENT. NO SIGNS OF DISTRESS NOTED. SCHEDULED MEDICATION ADMINISTERED. SIDE RAILS UP X2. BED IN LOW POSITION. CALL LIGHT IN REACH.
--- NOTE | 2016-08-16 12:45 | NUR ---
ALERT IN BED EATING LUNCH WITH ASSIST FROM . NO SIGNS OF DISTRESS NOTED. SIDE RAILS UP X2. BED IN LOW POSITION. CALL LIGHT IN REACH. ISAC ALARM ON.
--- NOTE | 2016-08-16 15:20 | NUR ---
PATIENT IN BED RESTING WITH EYES CLOSED. RESPIRATIONS EVEN AND UNLABORED. PATIENT VERY DROWSY. WAKES UPON STIMULI AND QUICKLY DRIFTS BACK OFF TO SLEEP. NO SIGNS OF DISTRESS NOTED. ISAC ALARM ON. SIDE RAILS UP X2. BED IN LOW POSITION. CALL LIGHT IN REACH.
[2016-08-16 15:33] VITALS: BP 138/64
--- NOTE | 2016-08-16 17:50 | NUR ---
PATIENT IN HIGH CASTELLON POSITION RESTING WITH EYES CLOSED. RESPIRATIONS EVEN AND UNLABORED. AT BEDSIDE. SIDE RAILS UP X2. BED IN LOW POSITION. CALL LIGHT IN REACH.
[2016-08-16 20:00] VITALS: BP 153/61
--- NOTE | 2016-08-16 23:27 | NUR ---
ASSESSED AT THE BEGINNING OF THE SHIFT. PT IS WAS LETHARGIC AND WAS AT THE BEDSIDE. SHE HAS O2 AT [address] WE ALSO HAVE A SET OF SCD'S ON HER AND A KAUR CATH. SHE WAS STARTING TO WAKE UP AT MED TIME AND SHE WAS REQUESTING HER RESTORIL FOR BEDTIME. SHE HAD JUST EATEN ICE CREAM AND SEEMED MORE AWAKE AT THAT TIME. NO OTHER NARCOTICS WERE GIVEN TO HER. AFTER TAKING THIS HER WENT HOME AND SHE RESTED QUIET AND IS NOW SLEEPING. THERE IS A BED ALARM IN PLACE AND SHE IS CLOSE TO THE NURSES STATION TO BE WATCHED WITH THE DOOR OPEN. THE BED IS LOW, RAILS UP X'S 2 WITH THE CALL LIGHT AT HAND.
[2016-08-17] VITALS: BP 143/60
[2016-08-17 04:00] VITALS: BP 147/64
[2016-08-17 05:18] LABS: BASOPHILS 0.3 % (0-2); EOSINOPHILS 8.2 % (0-7); HEMATOCRIT 42.9 % (36.0-48.0); IMMATURE GRANULOCYTES 0.2 % (0-5); LYMPHOCYTES 23.1 % (15-50); MCH 27.8 pg (26.0-34.0); MCHC 30.3 g/dL (31.0-37.0); MEAN PLATELET VOLUME 11.4 fL (7.4-10.4); MONOCYTES 15.2 % (2-11); PLATELET COUNT 120 10x3/uL (130-400); RBC 4.67 10x6/uL (4.00-5.40); WBC 6.5 10x3/uL (4.8-10.8)
[2016-08-17 05:23] LABS: MCV 91.9 fL (80.0-100.0)
[2016-08-17 05:55] LABS: ALBUMIN 2.5 g/dL (3.4-5.0); ANION GAP 10.9 mmol/L (8-16); BILIRUBIN - TOTAL 1.7 mg/dL (0.2-1.3); CALCIUM 7.8 mg/dL (8.5-10.1); CARBON DIOXIDE 31.2 mmol/L (21.0-32.0); POTASSIUM - SERUM 3.1 mmol/L (3.5-5.1); PROTEIN - SERUM 5.1 g/dL (6.4-8.2)
[2016-08-17 08:13] VITALS: BP 148/58
--- NOTE | 2016-08-17 12:11 | NUR ---
NUTRITION MONITORING & EVAL CHART REVIEWED. PT CURRENTLY SLEEPING. DIET ADVANCED TO REG WITH 75% INTAKE BREAKFAST. RD FOLLOWING
[2016-08-17 16:10] VITALS: BP 158/65
[2016-08-17 20:00] VITALS: BP 153/56
[2016-08-18] VITALS: BP 149/61
--- NOTE | 2016-08-18 02:32 | NUR ---
ASSESSED AT THE BEGINNING OF THE SHIFT. PT IS ALERT WHEN AWAKE BUT WAS SLEEPING WELL AT THE BEGINNING OF THE SHIFT. SHE HAS TELEMETRY IN PLACE AND IT IS [address]. THERE ARE SCD'S IN PLACE AND A BED ALARM ON FOR SAFETY. THERE IS STILL A KAUR CATH IN PLACE WITH DARK SABA URINE. HER HAS CALLED TWICE TO CHECK ON HER DURING THE NIGHT BUT HE HAS NOT BEEN HERE. SHE WAS AWAKE FOR A COUPLE OF HRS AT ABOUT 2100 BUT THEN AFTER MEDS AND A SANDWICH TRAY WHICH SHE ATE HALF OF SHE FELL BACK TO SLEEP. THE BED IS LOW, RAILS UP X'S 2 WITH THE CALL LIGHT AT HAND.
[2016-08-18 04:00] VITALS: BP 168/62
[2016-08-18 06:18] LABS: ALBUMIN 2.1 g/dL (3.4-5.0); BILIRUBIN - DIRECT 0.03 mg/dL (0.00-0.30); BILIRUBIN - INDIRECT 1.54 mg/dL (0.00-1.00); BILIRUBIN - TOTAL 1.57 mg/dL (0.2-1.3); PROTEIN - SERUM 5.4 g/dL (6.4-8.2)
--- NOTE | 2016-08-18 07:55 | NUR ---
SLEEPING, NO DISTRESS NOTED, BREATHING EVEN AND UNLABORED, CALL LIGHT IN REACH, BED LOWEST POSITON, WILL CONTINUE TO MONITOR
[2016-08-18 08:14] VITALS: BP 174/70
[2016-08-18 12:05] VITALS: BP 179/72
--- NOTE | 2016-08-18 12:43 | NUR ---
SITTING UP IN BED EATING LUNCH. A/O X3. NO C/O AT THIS TIME. DENIES NEEDS. COMPLETED ORIENTED AT THIS TIME.
[2016-08-18 15:57] VITALS: BP 131/58
--- NOTE | 2016-08-18 19:00 | NUR ---
PATIENT IN BED VISITING WITH FAMILY. HOB 30 DEGREES. AAOX4. RR EVEN AND UNLABORED. O2 @ 3L VIA NC. 0 S/S OF DISTRESS. STATES PAIN IS A 7/10. IV TO LEFT FA S/L WITH NO REDNESS OR SWELLING. TELEMETRY ON. KAUR SECURED WITH STATLOCK AND DRAINING TO GRAVITY. SCD'S IN ROOM BUT OFF. SRX1. BED LOW. CALL LIGHT WITHIN REACH.
[2016-08-18 20:00] VITALS: BP 153/67
--- NOTE | 2016-08-18 22:05 | NUR ---
NIGHTTIME MEDS GIVEN. RESTORIL GIVEN FOR SLEEP. KAUR REMOVED PER ORDER.
[2016-08-19] VITALS: BP 143/56
[2016-08-19 04:00] VITALS: BP 130/75
--- NOTE | 2016-08-19 08:04 | NUR ---
RESTING, DENIES NEEDS, BED LOWEST POSITION, CALL LIGHT IN REACH, WILL CONTINUE TO MONITOR
--- NOTE | 2016-08-19 09:05 | NUR ---
PT SITTING UP AT BEDSIDE AT THIS TIME, NO COMPLAINTS OF PAIN OR DISCOMFORT. IV INFUSING, O2 AT 2L. BED IN LOW POSITION AND CALL LIGHT WITHIN REACH. WILL CONTINUE TO MONITOR.
[2016-08-19 09:29] VITALS: BP 149/61
--- NOTE | 2016-08-19 11:07 | NUR ---
WALKED 500 FT WITH WALKER AND , DENIES NEEDS
[2016-08-19 12:46] VITALS: BP 156/56
[2016-08-19 16:29] VITALS: BP 145/54
--- NOTE | 2016-08-19 19:00 | NUR ---
PATIENT IN BED VISITING WITH FAMILY. HOB 50 DEGREES. AAOX4. RR EVEN AND UNLABORED. O2 @ 3L VIA NC. 0 S/S OF DISTRESS. STATES PAIN IS A 7/10. IV TO LEFT FA S/L WITH NO REDNESS OR SWELLING. TELEMETRY ON. SCD'S IN ROOM BUT OFF. SRX1. BED LOW. CALL LIGHT WITHIN REACH.
[2016-08-19 19:54] LABS: ALBUMIN 2.5 g/dL (3.4-5.0); ANION GAP 11.3 mmol/L (8-16); BILIRUBIN - TOTAL 0.84 mg/dL (0.2-1.3); CALCIUM 8.1 mg/dL (8.5-10.1); CARBON DIOXIDE 31.1 mmol/L (21.0-32.0); POTASSIUM - SERUM 3.4 mmol/L (3.5-5.1)
[2016-08-19 20:00] VITALS: BP 137/66
[2016-08-19 20:01] LABS: CREATININE - SERUM 1.4 mg/dL (0.6-1.3)
--- NOTE | 2016-08-19 21:00 | NUR ---
NIGHTTIME MEDS GIVEN. LACTULOSE REFUSED. RESTORIL GIVEN FOR SLEEP.
--- NOTE | 2016-08-20 03:00 | NUR ---
PATIENT SLEEPING WITH NO DISTRESS NOTED. CALL LIGHT WITHIN REACH.
[2016-08-20 06:20] VITALS: BP 151/62
--- NOTE | 2016-08-20 07:25 | NUR ---
PT AOX4 RESP EVEN AND NONLABORED IV TO LEFT FOREARM PATENT AND INTACT. PT DENIES NEEDS AT THIS TIME BED IN LOWEST SETTING CALL LIGHT WITHIN REACH WILL CONTINUE TO MONITOR SRX2
[2016-08-20 10:15] VITALS: BP 124/47
[2016-08-20 12:54] VITALS: BP 128/52
[2016-08-20] MEDS ORDERED: LYRICA25 MG PO (16:45)
[2016-08-20] MEDS ORDERED: RESTORIL7.5 MG PO (16:45)
[2016-08-20] MEDS ORDERED: OXYCONTIN40 MG PO (16:46)
[2016-08-20] MEDS ORDERED: LIDODERM 5 %1 PATCH TRANSDERM (16:47)
[2016-08-20] MEDS ORDERED: FLORANEX / LACT1 TAB PO (16:47)
[2016-08-20 16:53] VITALS: BP 128/52
--- NOTE | 2016-08-20 16:59 | NUR ---
medical office secretary advised MAGALIE that patient had discharge to home with home health order. MAGALIE called to speak with the patient as I was on another unit. She declined home health. Stated she had been walking around the unit and doing well. Does not feel she needs home health. MAGALIE advised if she changed her mind to please call her MD's office to have DR order.
--- NOTE | 2016-08-20 18:21 | NUR ---
PAPER PERSCRIPTIONS FOR DISCHARGE NOT SIGNED. PAGED .
--- NOTE | 2016-08-20 18:46 | NUR ---
THE PATIENT AND HER DAUGHTER STATED THEY WOULD BE OKAY WITH GOING TO 'S OFFICE TOMORROW TO MEET UP WITH TO GET THE PERSCRIPTIONS SIGNED. SPOKE WITH TOLD HER WHAT THE PATIENT SAID. SHE STATED "I CAN DO THAT. HAVE THEM MEET ME TOMORROW AT 'S OFFICE AROUND 1000." I STATED "CAN I PUT YOU ON HOLD SO THAT I CAN GET A PHONE NUMBER FOR YOU TO CALL THEM ON IF ANYTHING CHANGES?" SHE STATED "NO CALL ME BACK WITH THE NAME AND NUMBER."
--- NOTE | 2016-08-20 18:53 | NUR ---
SPOKE WITH THE PATIENT AND . GAVE THE PHONE NUMBER THE PATIENT TOLD ME WAS HER CELL PHONE NUMBER: [phone].
--- NOTE | 2016-08-20 18:56 | NUR ---
IV DISCONTINUED WITH CATHETER INTACT AT THIS TIME. PT AND DAUGHTER GIVEN DISCHARGE INSTRUCTIONS AT THIS TIME. PT O2 87% ON ROOM AIR. O2 VIA NC RESTARTED AT THIS TIME WILL RECHECK MOMENTARILY
== END 2016-08-20 20:19 | disposition home health service (06) | DRG 441 ==
LOC: D.ER 02:11 → D.MS 06:50
PROVIDERS: Family Medicine; ADMIT Family Medicine
DX: K72.00 Acute and subacute hepatic failure without coma (principal); J18.9 Pneumonia, unspecified organism; G93.41 Metabolic encephalopathy; J96.20 Acute and chronic respiratory failure, unspecified whether with hypoxia or hypercapnia; G93.49 Other encephalopathy; N17.9 Acute kidney failure, unspecified; J44.0 Chronic obstructive pulmonary disease with (acute) lower respiratory infection; M62.82 Rhabdomyolysis; I25.10 Atherosclerotic heart disease of native coronary artery without angina pectoris; K59.00 Constipation, unspecified; M81.0 Age-related osteoporosis without current pathological fracture; M79.7 Fibromyalgia; M62.830 Muscle spasm of back; W19.XXXA Unspecified fall, initial encounter; M54.9 Dorsalgia, unspecified; M25.552 Pain in left hip; M25.551 Pain in right hip; F17.200 Nicotine dependence, unspecified, uncomplicated

== ENCOUNTER 2016-10-01 04:50 | Emergency (ER) | payer MEDICARE, OTHER ==
[2016-08-15 12:43] VITALS: BMI 21.4
[~2016-10-01 04:50] MED LIST changes: +FLORANEX / LACT1 TAB PO; +LIDODERM 5 %1 PATCH TRANSDERM; +LYRICA25 MG PO; +RESTORIL7.5 MG PO
[2016-10-01 05:49] LABS: BASOPHILS 0.3 % (0-2); EOSINOPHILS 5.3 % (0-7); HEMATOCRIT 48.5 % (36.0-48.0); HEMOGLOBIN 14.8 g/dL (12-16); IMMATURE GRANULOCYTES 0.3 % (0-5); LYMPHOCYTES 22.7 % (15-50); MCH 28.5 pg (26.0-34.0); MCHC 30.5 g/dL (31.0-37.0); MCV 93.3 fL (80.0-100.0); MEAN PLATELET VOLUME 10.2 fL (7.4-10.4); MONOCYTES 11.9 % (2-11); NEUTROPHILS 59.5 % (40-80); RDW 18.7 % (11.5-14.5)
[2016-10-01 05:50] LABS: PLATELET COUNT 173 10x3/uL (130-400)
[2016-10-01 05:55] LABS: ALBUMIN 3.6 g/dL (3.4-5.0); ANION GAP 10.8 mmol/L (8-16); BILIRUBIN - TOTAL 0.34 mg/dL (0.2-1.3); CALCIUM 9.7 mg/dL (8.5-10.1); CARBON DIOXIDE 36.1 mmol/L (21.0-32.0); CREATININE - SERUM 0.9 mg/dL (0.6-1.3); POTASSIUM - SERUM 4.9 mmol/L (3.5-5.1); PROTEIN - SERUM 7.4 g/dL (6.4-8.2)
[2016-10-01 06:35] LABS: APPEARANCE CLEAR (CLEAR); BILIRUBIN NEGATIVE (NEGATIVE); COLOR YELLOW (YELLOW); GLUCOSE NEGATIVE (NEGATIVE); KETONE NEGATIVE (NEGATIVE); LEUKOCYTE ESTERASE NEGATIVE (NEGATIVE); NITRITE NEGATIVE (NEGATIVE); PROTEIN NEGATIVE (NEGATIVE); UROBILINOGEN NORMAL (NORMAL)
[2016-10-01 07:42] LABS: AMYLASE - SERUM 98 U/L (25-115); LIPASE 578 U/L (73-393)
== END 2016-10-01 08:34 | disposition home or self-care (01) ==
LOC: D.ER 04:50
PROVIDERS: Emergency Medicine
DX: K59.00 Constipation, unspecified (principal); J44.9 Chronic obstructive pulmonary disease, unspecified; F17.200 Nicotine dependence, unspecified, uncomplicated

== ENCOUNTER 2017-02-06 17:56 | Inpatient (IN) | payer MEDICARE, OTHER ==
[2016-08-15 12:43] VITALS: BMI 21.4
[2017-02-06 20:08] LABS: BASOPHILS 0.3 % (0-2); EOSINOPHILS 1.3 % (0-7); HEMATOCRIT 48.2 % (36.0-48.0); HEMOGLOBIN 15.6 g/dL (12-16); IMMATURE GRANULOCYTES 0.1 % (0-5); LYMPHOCYTES 20.2 % (15-50); MCH 30.7 pg (26.0-34.0); MCHC 32.4 g/dL (31.0-37.0); MCV 94.9 fL (80.0-100.0); MEAN PLATELET VOLUME 11.1 fL (7.4-10.4); MONOCYTES 8.7 % (2-11); NEUTROPHILS 69.4 % (40-80); RBC 5.08 10x6/uL (4.00-5.40); RDW 14.4 % (11.5-14.5); WBC 7.1 10x3/uL (4.8-10.8)
[2017-02-06 20:16] LABS: ALBUMIN 4.4 g/dL (3.4-5.0); ANION GAP 18.5 mmol/L (8-16); BILIRUBIN - TOTAL 0.84 mg/dL (0.2-1.3); CALCIUM 9.5 mg/dL (8.5-10.1); CARBON DIOXIDE 27.2 mmol/L (21.0-32.0); CREATININE - SERUM 0.9 mg/dL (0.6-1.3); POTASSIUM - SERUM 3.7 mmol/L (3.5-5.1); PROTEIN - SERUM 8.1 g/dL (6.4-8.2)
[2017-02-06 20:27] LABS: PLATELET COUNT 210 10x3/uL (130-400)
[2017-02-06 22:12] LABS: APPEARANCE CLEAR (CLEAR); BILIRUBIN NEGATIVE (NEGATIVE); COLOR YELLOW (YELLOW); GLUCOSE NEGATIVE (NEGATIVE); KETONE MODERATE mg/dL (NEGATIVE); NITRITE NEGATIVE (NEGATIVE); PROTEIN NEGATIVE (NEGATIVE); SPECIFIC GRAVITY 1.015 (1.005-1.020); UROBILINOGEN NORMAL (NORMAL)
[2017-02-06 22:23] LABS: UDS - AMPHET NEGATIVE QUAL (NEGATIVE); UDS - BARB NEGATIVE QUAL (NEGATIVE); UDS - BENZO NEGATIVE QUAL (NEGATIVE); UDS - COCAINE NEGATIVE QUAL (NEGATIVE); UDS - OPIATE POSITIVE QUAL (NEGATIVE); UDS - PCP NEGATIVE QUAL (NEGATIVE); UDS - THC NEGATIVE QUAL (NEGATIVE)
--- NOTE | 2017-02-07 02:05 | NUR ---
Patient refused to sign consents and did not want to stay, patient signed AMA paperwork and left with at 01:15 AM.
--- NOTE | 2017-02-09 10:32 | SS ---
PATIENT:DAIANA BARTLETT :46 MEDICAL RECORD: [id number] DISCHARGE SUMMARY ADMISSION DATE: 02/06/17 DISCHARGE DATE: 02/07/17 HOSPTIAL COURSE: The patient is 66 years old and she was admitted on a voluntary basis to the behavioral unit secondary to some mental status changes. She came to the unit with her family. She was being evaluated by the nurse and she and the family decided not to stay. They were here for about 2 hours, doing some paperwork and left. The patient was not suicidal or homicidal. There were some reports of some psychotic symptoms, but nothing that would indicate that the patient necessitated an involuntary stay and so she was discharged against medical advice. She was not seen by me. No medications or treatment were prescribed and as described above, she was here briefly left against medical advice and is going to be responsible for her own followup. She was told that if they change their mind, we would be happy to reevaluate her and possibly readmit her. TRANSINT:[id number] Voice Confirmation ID: [id number] DOCUMENT ID: [id number] DELTA ESCOTO MD at 1032 CC: [id number] DICTATION DATE: 02/08/17 1231 STUDENT AFFAIRS VICE PRESIDENT: 02/09/17 0141 DIS IN 02/07/17 [facility] [address] [place] [address]
== END 2017-02-07 01:20 | disposition left against medical advice (07) | DRG 885 ==
LOC: D.ER 17:56 → D.PSYCH 23:40
PROVIDERS: Emergency Medicine; ADMIT Psychiatry & Neurology Psychiatry
DX: F23 Brief psychotic disorder (principal)

== ENCOUNTER 2017-02-08 17:27 | Inpatient (IN) | payer MEDICARE, OTHER ==
[~2017-02-08] VITALS: Ht 162.6 cm; Wt 50.8 kg
[2017-02-09 22:05] VITALS: BP 190/63
--- NOTE | 2017-02-09 22:15 | NUR ---
PATIENT IN [place] YELLING. ATTEMPTING TO OPEN LOCKED UNIT DOORS TO LEAVE. KNOCKING ON REHAB DOOR. THINKS HER IS ON OTHER SIDE OF REHAB DOOR AND WAS YELLING AT HER . VERY ANXIOUS. UNABLE TO REDIRECT. PRN ATIVAN 0.5 MG IM GIVEN FOR INCREASING ANXIETY.
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
[2017-02-10 06:40] VITALS: BP 190/63; BMI 18.9
[2017-02-10 06:49] LABS: BASOPHILS 0.3 % (0-2); EOSINOPHILS 6.5 % (0-7); HEMATOCRIT 46.9 % (36.0-48.0); HEMOGLOBIN 15.1 g/dL (12-16); IMMATURE GRANULOCYTES 0.2 % (0-5); LYMPHOCYTES 39.3 % (15-50); MCH 30.4 pg (26.0-34.0); MCHC 32.2 g/dL (31.0-37.0); MCV 94.6 fL (80.0-100.0); MONOCYTES 10.1 % (2-11); NEUTROPHILS 43.6 % (40-80); PLATELET COUNT 191 10x3/uL (130-400); RBC 4.96 10x6/uL (4.00-5.40); RDW 14.5 % (11.5-14.5); WBC 5.8 10x3/uL (4.8-10.8)
[2017-02-10 07:01] LABS: HEMOGLOBIN A1C 5.8 % (4.8-6.0)
[2017-02-10 07:10] LABS: ALBUMIN 3.5 g/dL (3.4-5.0); ANION GAP 11.1 mmol/L (8-16); BILIRUBIN - TOTAL 0.4 mg/dL (0.2-1.3); CARBON DIOXIDE 27.6 mmol/L (21.0-32.0); CHOL - HDL RATIO 2.6 ratio (2.3-4.1); CREATININE - SERUM 0.9 mg/dL (0.6-1.3); LDL-HDL RATIO 1.4 ratio (1.5-3.5); POTASSIUM - SERUM 3.7 mmol/L (3.5-5.1); PROTEIN - SERUM 6.6 g/dL (6.4-8.2); THYROID STIMULATING HORMONE 1.37 uIU/mL (0.36-3.74)
[2017-02-10 08:00] VITALS: BP 167/70
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
[2017-02-10 19:30] VITALS: BP 138/72
--- NOTE | 2017-02-10 22:42 | NUR ---
RECEIVED IN HALLWAY. STANDING OUTSIDE OF NURSES STATION. CALM AND COOPERATIVE WITH CARE AND ASSESSMENTS. NO SIGNS OF PARANOIA. TOOK A SHOWER THIS PM. ATTENTION SEEKING AT TIMES. REDIRECT AND REORIENT NEEDED, RESTING IN BED EYES CLOSED AT THIS TIME. CONTINUE PLAN OF CARE
[2017-02-11 07:33] LABS: APPEARANCE CLEAR (CLEAR); BILIRUBIN NEGATIVE (NEGATIVE); COLOR YELLOW (YELLOW); GLUCOSE NEGATIVE (NEGATIVE); KETONE NEGATIVE (NEGATIVE); NITRITE NEGATIVE (NEGATIVE); PROTEIN NEGATIVE (NEGATIVE); SPECIFIC GRAVITY 1.015 (1.005-1.020); UROBILINOGEN NORMAL (NORMAL)
[2017-02-11 08:44] VITALS: BP 118/43
[2017-02-11 20:14] VITALS: BP 107/42
--- NOTE | 2017-02-12 00:05 | NUR ---
RECEIVED IN HALLWAY. ATTENTION SEEKING. DEMANDING AT TIMES. COMES OUT OF ROOM UP TO NURSES STATION CONSTANTLY. "ALWAYS WITH A DIFFERENT NEED." REFUSING TO FALLOW DIRECTIONS. REDIRECT AND REORIENT NEEDED. SITTING ON HER BED AT THIS TIME. CONTINUE PLAN OF CARE
[2017-02-12 07:29] LABS: FOLATE (FOLIC ACID) - SERUM 10.4 ng/mL (>3.0); RAPID PLASMA REAGIN Non Reactive (Non Reactive); VITAMIN D 25 HYDROXY 20.7 ng/mL (30.0-100.0)
--- NOTE | 2017-02-12 09:00 | NUR ---
COOPERATIVE WITH ASSESSMENT. PRESCRIBED MEDICATIONS GIVEN ORDERED. PATIENT IOS GOING TO DISCHARGE TODAY. ALL DISCHARGE PAPERWORK REVIEWED WITH FAMILY. ALL BELONGINGS BAGGED AND ACCOUNTED FOR.
--- NOTE | 2017-02-12 09:05 | PN ---
PATIENT:DAIANA BARTLETT MEDICAL RECORD: [id number] LOCATION:[facility] ADMISSION DATE: 02/09/17 PROGRESS NOTE DATE OF SERVICE: 02/11/2017 SUBJECTIVE: The patient's case was discussed with staff. She has no new complaint. OBJECTIVE: The patient is in good behavioral control with limited insight about her condition. She generally is tolerating her medicines well. She has not been aggressive. She has no evidence of withdrawal and although she complains of being in pain, she does not seem to be. She insists she must have narcotics and that she has had them for 40 years and that she cannot stop them. There are no paranoid thoughts. She is angry with her , but not threatening towards him. She has a euthymic mood. ASSESSMENT: No change in diagnoses. PLAN: The patient's delirium is clearing and the behaviors that were associated with it are gone. If she maintains this improvement through tomorrow, I am going to discharge her. I continue to think she has a substance use disorder and she is adamant about not wanting to go to treatment. TRANSINT:[id number] Voice Confirmation ID: [id number] DOCUMENT ID: [id number] DELTA ESCOTO MD at 0905 CC: [id number] DICTATION DATE: 02/11/17 1401 TELEGRAPH OPERATOR: 02/11/172121 ADM IN [facility] [address] [place] [address]
[2017-02-12 09:40] VITALS: BP 170/53
[2017-02-12] MEDS ORDERED: LISINOPRIL10 MG PO (09:58)
--- NOTE | 2017-02-12 10:18 | NUR ---
AXEL SPOKE WITH PT'S ABOUT DISCHARGE PLANS FOR TODAY. JOHN VERBALIZED UNDERSTANDING OF THE DISCUSSION AND WILL PICK PT UP AT 1130.
--- NOTE | 2017-02-12 10:35 | NUR ---
AXEL REFERRED PT TO [facility], [facility], AND FOLLOW UP WITH . [facility].
[2017-02-12 13:36] VITALS: Ht 162.6 cm; Wt 50.8 kg
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
== END 2017-02-12 11:00 | disposition home or self-care (01) | DRG 880 ==
LOC: D.PSYCH 17:27
PROVIDERS: ADMIT Psychiatry & Neurology Psychiatry
DX: F05 Delirium due to known physiological condition (principal); F19.20 Other psychoactive substance dependence, uncomplicated; F11.259 Opioid dependence with opioid-induced psychotic disorder, unspecified; I25.10 Atherosclerotic heart disease of native coronary artery without angina pectoris; Z72.0 Tobacco use; M81.0 Age-related osteoporosis without current pathological fracture; I10 Essential (primary) hypertension; J44.9 Chronic obstructive pulmonary disease, unspecified; Z74.09 Other reduced mobility; J30.9 Allergic rhinitis, unspecified; G89.29 Other chronic pain; M54.5 Low back pain; M79.7 Fibromyalgia

== ENCOUNTER 2017-03-05 13:25 | Inpatient (IN) | payer MEDICARE, OTHER ==
[~2017-03-05] VITALS: Ht 162.6 cm; Wt 51.4 kg
[~2017-03-05 13:25] MED LIST changes: +LISINOPRIL10 MG PO
[2017-03-05 14:13] LABS: APPEARANCE HAZY (CLEAR); BACTERIA MANY /hpf (NONE SEEN); BILIRUBIN NEGATIVE (NEGATIVE); COLOR YELLOW (YELLOW); EPITHELIAL CELLS 0-5 /hpf (0-5); GLUCOSE NEGATIVE (NEGATIVE); KETONE NEGATIVE (NEGATIVE); MUCUS <1+ /lpf (NONE SEEN); NITRITE NEGATIVE (NEGATIVE); PROTEIN NEGATIVE (NEGATIVE); RED CELLS - URINE 0-5 /hpf (0-5); UROBILINOGEN NORMAL (NORMAL); WHITE CELLS - URINE 0-5 /hpf (0-5)
[2017-03-05 14:22] LABS: BASOPHILS 0.3 % (0-2); EOSINOPHILS 2.3 % (0-7); HEMATOCRIT 44.9 % (36.0-48.0); HEMOGLOBIN 14.6 g/dL (12-16); IMMATURE GRANULOCYTES 0.2 % (0-5); LYMPHOCYTES 35.2 % (15-50); MCH 30.4 pg (26.0-34.0); MCHC 32.5 g/dL (31.0-37.0); MCV 93.3 fL (80.0-100.0); MEAN PLATELET VOLUME 10.9 fL (7.4-10.4); MONOCYTES 9.6 % (2-11); NEUTROPHILS 52.4 % (40-80); PLATELET COUNT 200 10x3/uL (130-400); RBC 4.81 10x6/uL (4.00-5.40); RDW 14.2 % (11.5-14.5); WBC 6.4 10x3/uL (4.8-10.8)
[2017-03-05 14:23] LABS: UDS - AMPHET NEGATIVE QUAL (NEGATIVE); UDS - BARB NEGATIVE QUAL (NEGATIVE); UDS - BENZO NEGATIVE QUAL (NEGATIVE); UDS - COCAINE NEGATIVE QUAL (NEGATIVE); UDS - OPIATE NEGATIVE QUAL (NEGATIVE); UDS - PCP NEGATIVE QUAL (NEGATIVE); UDS - THC NEGATIVE QUAL (NEGATIVE)
[2017-03-05 14:32] LABS: ALBUMIN 4.3 g/dL (3.4-5.0); ANION GAP 13.9 mmol/L (8-16); BILIRUBIN - TOTAL 0.44 mg/dL (0.2-1.3); CALCIUM 10.2 mg/dL (8.5-10.1); CARBON DIOXIDE 29.2 mmol/L (21.0-32.0); CREATININE - SERUM 0.9 mg/dL (0.6-1.3); POTASSIUM - SERUM 4.1 mmol/L (3.5-5.1)
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
[2017-03-05 18:40] VITALS: BP 197/97; BMI 19.4
--- NOTE | 2017-03-05 19:51 | NUR ---
LEO SPOKE TO SPOUSE AND DID RECEIVE A VERBAL CONSENT AND A CODE WORD.
--- NOTE | 2017-03-06 00:13 | NUR ---
RECEIVED IN BEDROO. RESTING IN BED WITH EYES CLOSED. RESPONDS TO VOICE. DEMANDING. HYPER VERBAL. ARGUMENTATIVE WITH STAFF. COOPERATIVE WITH CARE AND ASSESSMENT. NO SIGNS OF AGGRESSION AT THIS TIME. REDIRECT AND REORIENT NEEDED. WALKING ABOUT UNIT AT THIS TIME. CONTINUE PLAN OF CARE
[2017-03-06 06:44] LABS: BASOPHILS 0.2 % (0-2); EOSINOPHILS 5.9 % (0-7); HEMATOCRIT 43.1 % (36.0-48.0); IMMATURE GRANULOCYTES 0.2 % (0-5); LYMPHOCYTES 39.2 % (15-50); MCH 30.2 pg (26.0-34.0); MCHC 32.5 g/dL (31.0-37.0); MCV 92.9 fL (80.0-100.0); MEAN PLATELET VOLUME 11.1 fL (7.4-10.4); MONOCYTES 12.4 % (2-11); NEUTROPHILS 42.1 % (40-80); PLATELET COUNT 165 10x3/uL (130-400); RBC 4.64 10x6/uL (4.00-5.40); RDW 14.4 % (11.5-14.5); WBC 4.8 10x3/uL (4.8-10.8)
[2017-03-06 07:07] LABS: HEMOGLOBIN A1C 6.2 % (4.8-6.0)
[2017-03-06 07:17] LABS: ALBUMIN 3.5 g/dL (3.4-5.0); ANION GAP 12.4 mmol/L (8-16); BILIRUBIN - TOTAL 0.5 mg/dL (0.2-1.3); CALCIUM 9.4 mg/dL (8.5-10.1); CARBON DIOXIDE 28.2 mmol/L (21.0-32.0); CHOL - HDL RATIO 2.3 ratio (2.3-4.1); LDL-HDL RATIO 1.1 ratio (1.5-3.5); POTASSIUM - SERUM 3.6 mmol/L (3.5-5.1); PROTEIN - SERUM 6.4 g/dL (6.4-8.2); THYROID STIMULATING HORMONE 0.99 uIU/mL (0.36-3.74)
[2017-03-06 10:27] VITALS: BMI 19.4
[2017-03-06 10:30] VITALS: BP 159/95
--- NOTE | 2017-03-06 13:22 | NUR ---
B) PATIENT IS MANIC AND RAMBLING AND UNABLE TO SIT STILL, SHE IS GRANDIOSE IN HER THOUGHTS, SHE NEVER STOPS TALKING AND SHE TALKS ABOUT HOW AWFUL HER IS, SHE IS IRRITABLE BECAUSE SHE SAYS SHE IS CONSTANT PAIN THAT NEVER GOES AWAY AND SHE NEEDS HER "CANDY" APPARENTLY SHE CALLS PAIN MEDS "CANDY" SHE HAS ASKED SEVERAL TIMES "HAS DR. RENDON GOT MY PILLS" ASKED HER WHAT SHE MEANST THE ONLY NEW THING IS THE NICOTINE PATCH. SHE SAID "I'LL JUST TALK TO YOU ONE ON ONE LATER. SHE DID ASK FOR SOMETHING TO CALM HER DOWN. I) HALDOL 2 MG PO GIVEN. R) PATIENT IS INTERACTING IN GROUPS, BUT SHE IS INTRUSIVE AND NOT ABLE TO STAY STILL. P) CONTINUE POC.
--- NOTE | 2017-03-06 14:00 | NUR ---
PATIENT IS CALMER NOW, SHE IS BEGINNING TO SLOW DOWN ENOUGH TO PARTICIPATE IN ACTIVITIES AND READ A BOOK.
--- NOTE | 2017-03-06 15:43 | NUR ---
PATIENT REQUESTS HALDOL, SHE SAID "I THINK IT'S HELPING AND IF I GET SLEEPY, I WILL GO FIND A PLACE TO SLEEP" HALDOL 2 MG PO GIVEN NOW.
--- NOTE | 2017-03-06 16:30 | NUR ---
PATIENT IS DANCING AND ENJOYING THE MUSIC JUAN Wright HAS GOING.
[2017-03-06 17:59] LABS: APPEARANCE CLEAR (CLEAR); BILIRUBIN NEGATIVE (NEGATIVE); COLOR YELLOW (YELLOW); GLUCOSE NEGATIVE (NEGATIVE); KETONE NEGATIVE (NEGATIVE); NITRITE NEGATIVE (NEGATIVE); PROTEIN NEGATIVE (NEGATIVE); UROBILINOGEN NORMAL (NORMAL)
[2017-03-06 19:30] VITALS: BP 130/64
--- NOTE | 2017-03-06 23:53 | NUR ---
B) patient is alert and oriented to person and place and time, anxious and restless, wandering and intrusive with staff, attention and drug seeking, I) Administered scheduled medications, PRN Haldol 2 mg PO given at 21:59 R) Medication compliant, walking the hallways, P) Continue plan of care.
--- NOTE | 2017-03-07 01:33 | NUR ---
PRN Ativan 0.5 mg IM given at 01:34 for anxiety.
[2017-03-07 07:29] LABS: VITAMIN D 25 HYDROXY 23.5 ng/mL (30.0-100.0)
[2017-03-07 08:22] LABS: FOLATE (FOLIC ACID) - SERUM 9.9 ng/mL (>3.0); RAPID PLASMA REAGIN Non Reactive (Non Reactive)
[2017-03-07 09:47] VITALS: BP 144/69
--- NOTE | 2017-03-07 11:35 | NUR ---
B) PATIENT IS HYPERVERBAL, BUT SHE IS SLOWING DOWN A LITTLE, SHE HAS SAID "I AM SO SLEEPY, BUT I KNOW I WILL BE OK" PATIENT IS PARTICIPATING IN GROUPS AND ACTIVITIES, BUT NEEDS PROMPTING. I) PROVIDE PRESCRIBED MEDS. R) PATIENT IS COMPLIANT WITH MEDS. P) CONTINUE POC.
[2017-03-07 12:37] VITALS: BP 144/69
--- NOTE | 2017-03-07 13:39 | NUR ---
JUAN Mathew SAYS SHE SPOKE TO PATIENT'S SPOUSE AND HE TOLD HER THAT WHEN THE PATIENT'S WORDS GET CHOPPY SHE HAS SEIZURES. PATIENT'S WORDS ARE SLURRY AND JUAN HAD HER LIE DOWN ON THE COUCH, WILL MONITOR.
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
--- NOTE | 2017-03-07 15:19 | NUR ---
PATIENT IS SLEEPING, SHE DID NOT RECEIVE HER 1500 MEDS, SHE DID NOT WAKE UP.
[2017-03-07 19:59] VITALS: BP 144/69
--- NOTE | 2017-03-08 01:59 | NUR ---
B) Patient is alert and oriented, less demanding and manic this shift, calm and cooperative, I) Administered scheduled medications, monitored for behaviors, R) Medication compliant P) Continue plan of care.
--- NOTE | 2017-03-08 02:01 | NUR ---
Spoke with patient's and he express concern that his will not take her medications when she is discharged. He was wanting once a month treatment or supervised administered medications for behavior medications.
--- NOTE | 2017-03-08 02:06 | NUR ---
PRN HALDOL 1 MG PO GIVEN FOR ANXIETY AT 02:06.
--- NOTE | 2017-03-08 10:05 | PN ---
PATIENT:DAIANA BARTLETT MEDICAL RECORD: [id number] LOCATION:[facility] ADMISSION DATE: 03/05/17 PROGRESS NOTE DATE OF SERVICE: 03/07/2017 SUBJECTIVE: The patient's case was discussed with staff. She has no new complaint. OBJECTIVE: The patient is in good behavioral control with limited insight about her condition. She generally tolerates her medicines well. ASSESSMENT: No change in diagnoses. PLAN: The patient required p.r.n. medication twice last night. I am not sure if that was as much because she felt agitated or just want it something that was mind altering. She is continuing to be delusional and paranoid and when this is pointed out to her, she becomes angry. Once again, I have recommended inpatient residential substance abuse treatment to her, but she refuses that. Her prognosis is guarded. TRANSINT:[id number] Voice Confirmation ID: [id number] DOCUMENT ID: [id number] DELTA ESCOTO MD at 1005 CC: [id number] DICTATION DATE: 03/07/17 1436 VENEER GRADER: 03/07/17 1548 ADM IN [facility] [address] [place] [address]
[2017-03-08 10:59] VITALS: BP 138/074
--- NOTE | 2017-03-08 11:30 | NUR ---
ALERT AND ORIENTED X 3. CALM AND COOPERATIVE WITH STAFF AND PEERS. COMPLIANT WITH TAKING PRESCRIBED MEDICATIONS. ASSESSMENT COMPLETED PER FLOW SHEET. MONITOR FOR SAFETY AND CHANGES IN BEHAVIOR. CONTINUE POC.
--- NOTE | 2017-03-08 14:10 | NUR ---
Nutrition Follow Up: Pt is eating 82% meal avg on a regular diet. +BM 03/06/17. Meds and labs reviewed. Rec continue current diet. RD following.
--- NOTE | 2017-03-08 21:07 | PN ---
PATIENT:DAIANA BARTLETT MEDICAL RECORD: [id number] LOCATION:[facility] ADMISSION DATE: 03/05/17 PROGRESS NOTE DATE OF SERVICE: 03/08/2017 SUBJECTIVE: The patient says she wants to go home because family is coming. OBJECTIVE: The patient did require p.r.n. Haldol last night because of extreme agitation and restlessness. She has been fairly cooperative with staff. On exam, mood is anxious. Affect is somewhat brittle. Speech is repetitive. Content of thought focuses on somatic complaints. Sensorium shows no change. ASSESSMENT: No change in diagnosis. PLAN: 1. Maintain current medications. 2. Continue supportive therapy. TRANSINT:[id number] Voice Confirmation ID: [id number] DOCUMENT ID: [id number] MARCEL NASH III, MD at 2107 CC: [id number] DICTATION DATE: 03/08/17 1158 WOOD BORING MACHINE OPERATOR: 03/08/17 1248 ADM IN [id number] [place] [address]
--- NOTE | 2017-03-09 01:39 | NUR ---
B) Patient is alert and oriented X 3, needy at times, restless and difficulty falling to sleep, I) Administered scheduled medications, PRN Haldol 1 mg given for anxiety R) Medication compliant, walking the hallway and wanting snacks all night P) Continue plan of care.
[2017-03-09 07:00] VITALS: BP 145/73
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
[2017-03-09 22:30] VITALS: BP 158/70
--- NOTE | 2017-03-10 04:31 | NUR ---
RECEIVED IN HALLWAY. WALKING AROUND IN HALLWAY. CALM AND COOPERATIVE WITH CARE AND ASSESSMENT. NO SIGNS OF AGGRESSION. LESS DEMANDING THIS EVENING. NO DELUSIONAL STATEMENTS MADE. NO SIGNS OF HALLUCINATIONS. ENCOURAGE TO EXPRESS NEEDS. REDIRECT AND REORIENT NEEDED. RESTING IN BED WITH EYES CLOSED AT THIS TIME. CONTINUE PLAN OF CARE.
[2017-03-10 08:18] VITALS: BP 162/079
--- NOTE | 2017-03-10 08:40 | NUR ---
ADMINISTERED MORNING MEDS WHOLE WITHOUT DIFFICUTLY. PLEASANT AFFECT. NO S/SX OF ACUTE DISTRESS NOTED. WILL CONTINUE TO MONITOR
--- NOTE | 2017-03-10 11:00 | NUR ---
AWAKE AND ORIENTED X 3. LESS DEMANDING THIS AM. SHE HAS NOT COMPLAINED OF PAIN. COOPERATIVE AND CALM WITH STAFF. INTRUSIVE WITH CONVERSATIONS GOING ON AROUND ROOM. ASSESSMENT COMPLETED PER FLOW SHEET. MONITOR FOR SAFETY AND CONTINUE PLAN OF CARE.
[2017-03-10 19:30] VITALS: BP 132/89
--- NOTE | 2017-03-10 20:53 | NUR ---
RECEIVED IN HALLWAY. STANDING AT NURSES STATION. REQUESTING A PM SNACK. SNACK GIVEN. CALM AND COOPERATIVE WITH CARE AND ASSESSMENTS. NO SIGNS OF HALLUCINATIONS. REDIRECT AND REORIENT NEEDED. RESTING IN BED AT THIS TIME EYES OPEN. CONTINUE PLAN OF CARE
[2017-03-11 08:00] VITALS: BP 175/080
--- NOTE | 2017-03-11 11:08 | PN ---
PATIENT:DAIANA BARTLETT MEDICAL RECORD: [id number] LOCATION:[facility] ADMISSION DATE: 03/05/17 PROGRESS NOTE DATE OF SERVICE: 03/09/2017 SUBJECTIVE: No new complaint. OBJECTIVE: The patient continues to be rather demanding. She became very agitated last night and required p.r.n. Haldol at about midnight. This morning, she is less anxious. Affect is still somewhat brittle and speech is tangential and pressured. Content of thought is positive for grandiose ideation. Sensorium shows no change. ASSESSMENT: No change in diagnosis. PLAN: 1. Continue current medications. 2. Continue supportive therapy. TRANSINT:[id number] Voice Confirmation ID: [id number] DOCUMENT ID: [id number] MARCEL NASH III, MD at 1108 CC: [id number] DICTATION DATE: 03/09/17 1039 MANAGER UTILIZATION REVIEW: 03/09/17 1100 ADM IN [address] [place] [address]
[2017-03-11 20:29] VITALS: BP 159/71
--- NOTE | 2017-03-12 05:40 | NUR ---
B) Patient is alert and oriented, demanding and intrusive at times,restless and anxious I) Administered scheduled medications, PRN Haldol 1 mg PO given at 20:09 and at 23:25 R) medication compliant, social with staff and peers, P) Continue plan of care.
[2017-03-12 07:57] VITALS: BP 123/55
[2017-03-12] MEDS ORDERED: COREG6.25 MG PO (15:02)
[2017-03-12] MEDS ORDERED: ZESTRIL40 MG PO (15:02)
[2017-03-12] MEDS ORDERED: PEPCID20 MG PO (15:03)
[2017-03-12] MEDS ORDERED: NAPROXEN250 MG PO (15:03)
[2017-03-12] MEDS ORDERED: DEPAKOTE500 MG PO (15:03)
[2017-03-12] MEDS ORDERED: ABILIFY2 MG PO (15:03)
[2017-03-12 20:59] VITALS: BP 143/65
--- NOTE | 2017-03-13 03:06 | NUR ---
RECEIVED IN PATIENT ROOM. SITTING ON BED. CALM AND COOPERATIVE WITH CARE AND ASSESSMENT. NO SIGNS OF HALLUCINATIONS. REQUESTING HALDOL INJECTION. REDIRECT AND REORIENT NEEDED. ENCOURAGE TO EXPRESS NEEDS. RESTING IN BED WITH EYES CLOSED AT THIS TIME. CONTINUE PLAN OF CARE.
[2017-03-13 09:44] VITALS: BP 95/52
[2017-03-13 10:35] VITALS: Ht 162.6 cm; Wt 51.4 kg
--- NOTE | 2017-03-13 10:39 | NUR ---
PT IS CALM, COOPERATIVE. NO AGGRESSION OR MANIC BEHAVIOR NOTED. VSS. DISCHARGE PAPERWORK SENT TO DR. RENDON. DR. RENDON STATED THAT THE PT ALREADY HAD AN APPOINTMENT SO PT AND SPOUSE WERE TOLD TO KEEP THE APPOINTMENT SHE ALREADY HAD. ALL BELONGINGS FOUND AND PACKED TO SEND HOME WITH PT. APPT MADE FOR PT HAD [facility] FOR OUT PT THERAPY. PT WILL DISCHARGE HOME WITH SPOUSE LATER TODAY.
--- NOTE | 2017-03-13 13:45 | NUR ---
Alert, calm, discharged home in c/o spouse, belongings returned to patient. Patient in cheerful mood. Discharge instructions given to patient and spouse, meds previously phoned in to [facility].
--- NOTE | 2017-03-13 14:20 | PN ---
PATIENT:DAIANA BARTLETT MEDICAL RECORD: [id number] LOCATION:[facility] ADMISSION DATE: 03/05/17 PROGRESS NOTE DATE OF SERVICE: 03/11/2017 SUBJECTIVE: The patient's case was discussed with staff. She has no new complaint. OBJECTIVE: The patient denies intent to harm herself or others. She generally tolerates her medicines well. She continues to have ongoing disorganized thoughts, but has not been actively aggressive. ASSESSMENT: No change in diagnoses. PLAN: Current medicines have been reviewed and will be maintained. I am going to ask Dr. Kasey Babb to test her tomorrow. I believe that there is an early dementia present and I am interested in the testing. The patient is willing to stay for that. I anticipate she will probably be discharged either that afternoon or the next. TRANSINT:[id number] Voice Confirmation ID: [id number] DOCUMENT ID: [id number] DELTA ESCOTO MD at 1420 CC: [id number] DICTATION DATE: 03/11/17 1342 RISK MANAGEMENT SPECIALIST: 03/11/17 1349 ADM IN [facility] [address] [place] [address]
--- NOTE | 2017-03-13 14:20 | PN ---
PATIENT:DAIANA BARTLETT MEDICAL RECORD: [id number] LOCATION:[facility] ADMISSION DATE: 03/05/17 PROGRESS NOTE DATE OF SERVICE: 03/12/2017 SUBJECTIVE: The patient's case was discussed with staff. She has no new complaint. OBJECTIVE: The patient is in good behavioral control, although she required p.r.n. medication last night. She was tested by Dr. Kasey Babb and as expected scored in the mild range of impairment with a score of 24/30. Her long-term prognosis is guarded. She is very anxious to be discharged and I do not see a way that I can hold her against her will given her current symptoms. I would like to adjust the medications a little bit more, but she insists on leaving, so I will discharge her tomorrow. She is willing to go to [facility], which is an outpatient geriatric counseling program operated by [facility]. TRANSINT:[id number] Voice Confirmation ID: [id number] DOCUMENT ID: [id number] DELTA ESCOTO MD at 1420 CC: [id number] DICTATION DATE: 03/12/17 1509 COMMERCIAL CLEANER: 03/12/17 1539 ADM IN [facility] [address] [place] [address]
--- NOTE | 2017-03-14 14:03 | PN ---
PATIENT:DAIANA BARTLETT MEDICAL RECORD: [id number] LOCATION:[facility] ADMISSION DATE: 03/05/17 PROGRESS NOTE DATE OF SERVICE: 03/13/2017 SUBJECTIVE: The patient's case was discussed with staff. She has no new complaint. OBJECTIVE: The patient is in good behavioral control with poor insight about her condition. She certainly has no evidence of acute or direct dangerousness. She is tolerating her medicines well. ASSESSMENT: No change in diagnoses. PLAN: Brief supportive and educational interventions were made. I anticipate the patient will be transitioned out of the hospital soon if this level of improvement is maintained. TRANSINT:[id number] Voice Confirmation ID: [id number] DOCUMENT ID: [id number] DELTA ESCOTO MD at 1403 CC: [id number] DICTATION DATE: 03/13/17 1435 SECURITY INVESTIGATOR: 03/13/17 1633 DIS IN 03/13/17 [facility] [address] [place] [address]
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
== END 2017-03-13 16:06 | disposition home or self-care (01) | DRG 885 ==
LOC: D.ER 13:25 → D.PSYCH 18:17
PROVIDERS: Emergency Medicine; ADMIT Psychiatry & Neurology Psychiatry
DX: F31.10 Bipolar disorder, current episode manic without psychotic features, unspecified (principal); J44.9 Chronic obstructive pulmonary disease, unspecified; M19.90 Unspecified osteoarthritis, unspecified site; M81.0 Age-related osteoporosis without current pathological fracture; Z74.09 Other reduced mobility; G89.29 Other chronic pain; M54.5 Low back pain; J30.9 Allergic rhinitis, unspecified; I10 Essential (primary) hypertension; I25.10 Atherosclerotic heart disease of native coronary artery without angina pectoris; Z72.0 Tobacco use; M79.7 Fibromyalgia; N32.81 Overactive bladder; G47.00 Insomnia, unspecified

== ENCOUNTER 2017-06-17 11:38 | Emergency (ER) | payer MEDICARE, OTHER ==
[2017-03-13 10:35] VITALS: BMI 19.4
[~2017-06-17 11:38] MED LIST changes: +ABILIFY2 MG PO; +COREG6.25 MG PO; +DEPAKOTE500 MG PO; +NAPROXEN250 MG PO; +PEPCID20 MG PO; +ZESTRIL40 MG PO
[2017-06-17 13:16] LABS: BASOPHILS 0.2 % (0-2); EOSINOPHILS 2.6 % (0-7); HEMOGLOBIN 14.9 g/dL (12-16); IMMATURE GRANULOCYTES 0.7 % (0-5); LYMPHOCYTES 21.1 % (15-50); MCH 30.9 pg (26.0-34.0); MCHC 32.4 g/dL (31.0-37.0); MCV 95.4 fL (80.0-100.0); MEAN PLATELET VOLUME 11.3 fL (7.4-10.4); NEUTROPHILS 61.4 % (40-80); RBC 4.82 10x6/uL (4.00-5.40); RDW 13.8 % (11.5-14.5); WBC 8.5 10x3/uL (4.8-10.8)
[2017-06-17 13:19] LABS: ALBUMIN 3.8 g/dL (3.4-5.0); ALKALINE PHOSPHATASE 83 U/L (46-116); ALT (SGPT) 12 U/L (10-68); BILIRUBIN - TOTAL 0.53 mg/dL (0.2-1.3); CALC OSMOLALITY 282 mosm/kg (275-300); CALCIUM 9.3 mg/dL (8.5-10.1); CARBON DIOXIDE 28.3 mmol/L (21.0-32.0); CHLORIDE - SERUM 102 mmol/L (98-107); CREATININE - SERUM 0.8 mg/dL (0.6-1.3); GLUCOSE 103 mg/dL (74-106); POTASSIUM - SERUM 5.9 mmol/L (3.5-5.1); PROTEIN - SERUM 8.3 g/dL (6.4-8.2); SODIUM 141 mmol/L (136-145); UREA NITROGEN 19 mg/dL (7-18); eGFR NON AFRICAN AMERICAN 75 mL/min (90-120)
[2017-06-17 13:31] LABS: PLATELET COUNT 298 10x3/uL (130-400)
== END 2017-06-17 14:15 | disposition home or self-care (01) ==
LOC: D.ER 11:38
PROVIDERS: Family Medicine
DX: J44.1 Chronic obstructive pulmonary disease with (acute) exacerbation (principal); J20.9 Acute bronchitis, unspecified; I10 Essential (primary) hypertension; F17.200 Nicotine dependence, unspecified, uncomplicated

== ENCOUNTER 2017-10-26 21:41 | Emergency (ER) | payer MEDICARE, OTHER ==
[~2017-10-26] VITALS: Ht 162.6 cm; Wt 67.1 kg
[2017-10-26 21:50] VITALS: Ht 162.6 cm; Wt 67.1 kg
[2017-10-26] MEDS ORDERED: HYDROCODON-ACE1 EAC7 PO (22:47)
[2017-10-26 23:25] VITALS: BP 145/67
== END 2017-10-26 23:40 | disposition home or self-care (01) ==
LOC: D.ER 21:41
DX: S52.501A Unspecified fracture of the lower end of right radius, initial encounter for closed fracture (principal); W01.0XXA Fall on same level from slipping, tripping and stumbling without subsequent striking against object, initial encounter; Y93.89 Activity, other specified; Y92.019 Unspecified place in single-family (private) house as the place of occurrence of the external cause; S93.402A Sprain of unspecified ligament of left ankle, initial encounter; G40.909 Epilepsy, unspecified, not intractable, without status epilepticus; I10 Essential (primary) hypertension; I25.10 Atherosclerotic heart disease of native coronary artery without angina pectoris; J44.9 Chronic obstructive pulmonary disease, unspecified

== ENCOUNTER 2017-12-20 14:59 | Inpatient (IN) | payer MEDICARE, OTHER ==
[~2017-12-20] VITALS: Ht 162.6 cm; Wt 56.2 kg
[~2017-12-20 14:59] MED LIST changes: +HYDROCODON-ACE1 EAC7 PO
[2017-12-20 15:32] LABS: BASOPHILS 0.3 % (0-2); EOSINOPHILS 1.3 % (0-7); HEMATOCRIT 42.8 % (36.0-48.0); HEMOGLOBIN 13.8 g/dL (12-16); IMMATURE GRANULOCYTES 0.1 % (0-5); LYMPHOCYTES 38.2 % (15-50); MCH 30.7 pg (26.0-34.0); MCHC 32.2 g/dL (31.0-37.0); MCV 95.3 fL (80.0-100.0); MEAN PLATELET VOLUME 10.2 fL (7.4-10.4); NEUTROPHILS 50.1 % (40-80); RBC 4.49 10x6/uL (4.00-5.40); RDW 15.1 % (11.5-14.5); WBC 7.2 10x3/uL (4.8-10.8)
[2017-12-20 15:35] LABS: PLATELET COUNT 233 10x3/uL (130-400)
[2017-12-20 16:06] LABS: ALBUMIN 3.5 g/dL (3.4-5.0); ANION GAP 11.6 mmol/L (8-16); BILIRUBIN - TOTAL 0.39 mg/dL (0.2-1.3); CALCIUM 9.2 mg/dL (8.5-10.1); CARBON DIOXIDE 27.6 mmol/L (21.0-32.0); POTASSIUM - SERUM 4.2 mmol/L (3.5-5.1); PROTEIN - SERUM 7.2 g/dL (6.4-8.2)
[2017-12-20 20:00] VITALS: BP 157/46
[2017-12-20] MEDS ORDERED: ALENDRONATE SOD70 MG PO (20:01)
[2017-12-20] MEDS ORDERED: LYRICA75 MG PO (20:06)
[2017-12-20] MEDS ORDERED: ALBUTEROL SULF8.5 GM INH (20:11)
[2017-12-20] MEDS ORDERED: ULTRAM50 MG PO (20:13)
[2017-12-20] MEDS ORDERED: [UNRECOGNIZED DRUG - OTHER] TD (20:15)
[2017-12-20] MEDS ORDERED: NEURONTIN 300300 MG PO (20:17)
[2017-12-20] MEDS ORDERED: DEPAKOTE500 MG PO (20:17)
[2017-12-20] MEDS ORDERED: MYRBETRIQ25 MG PO (20:19)
[2017-12-20] MEDS ORDERED: TEMAZEPAM30 MG PO (20:20)
[2017-12-20] MEDS ORDERED: INCRUSE ELLI62.5 MCG INH (20:24)
[2017-12-20] MEDS ORDERED: MOBIC7.5 MG PO (20:26)
[2017-12-20] MEDS ORDERED: MAG-OX 400 MG400 MG PO (23:42)
[2017-12-21] VITALS: BP 149/59
[2017-12-21 01:39] VITALS: BP 157/46; BMI 21.3
[2017-12-21 04:00] VITALS: BP 135/57
[2017-12-21 05:45] LABS: BASOPHILS 0 % (0-2); EOSINOPHILS 0 % (0-7); HEMATOCRIT 40.3 % (36.0-48.0); IMMATURE GRANULOCYTES 0.3 % (0-5); LYMPHOCYTES 14.6 % (15-50); MCH 30.2 pg (26.0-34.0); MCHC 32.3 g/dL (31.0-37.0); MCV 93.7 fL (80.0-100.0); MEAN PLATELET VOLUME 10.9 fL (7.4-10.4); MONOCYTES 1.3 % (2-11); NEUTROPHILS 83.8 % (40-80); PLATELET COUNT 196 10x3/uL (130-400); RDW 14.6 % (11.5-14.5)
[2017-12-21 05:53] LABS: WBC 3.9 10x3/uL (4.8-10.8)
[2017-12-21 06:59] LABS: ANION GAP 12.1 mmol/L (8-16); CALCIUM 8.7 mg/dL (8.5-10.1); CARBON DIOXIDE 27.1 mmol/L (21.0-32.0); CREATININE - SERUM 0.9 mg/dL (0.6-1.3); POTASSIUM - SERUM 4.2 mmol/L (3.5-5.1)
[2017-12-21 09:11] VITALS: BP 117/48
[2017-12-21 11:01] VITALS: Ht 162.6 cm; Wt 56.2 kg
[2017-12-21 15:35] VITALS: BP 118/52
[2017-12-21 20:30] VITALS: BP 131/51
[2017-12-22 00:30] VITALS: BP 125/47
[2017-12-22 04:00] VITALS: BP 130/57
[2017-12-22 09:07] VITALS: BP 118/47
[2017-12-22] MEDS ORDERED: MEDROL DOSE PACK4 MG PO (14:09)
[2017-12-22 15:26] VITALS: BP 116/62
== END 2017-12-22 15:41 | disposition home or self-care (01) | DRG 191 ==
LOC: D.ER 14:59 → D.MS 17:43 → D.ER 18:11 → D.MS 12-22 15:41
PROVIDERS: Family Medicine
DX: J44.1 Chronic obstructive pulmonary disease with (acute) exacerbation (principal); F17.203 Nicotine dependence unspecified, with withdrawal; M79.7 Fibromyalgia; R56.9 Unspecified convulsions; I25.10 Atherosclerotic heart disease of native coronary artery without angina pectoris; Z95.5 Presence of coronary angioplasty implant and graft; I11.0 Hypertensive heart disease with heart failure; I50.9 Heart failure, unspecified; F41.9 Anxiety disorder, unspecified; F31.9 Bipolar disorder, unspecified; G89.29 Other chronic pain

== ENCOUNTER → 2018-03-10 13:38 | Outpatient (CLI) | payer MEDICARE, OTHER ==
[2017-12-21 11:01] VITALS: BMI 21.2
[~2018-03-10 13:38] MED LIST changes: +ALBUTEROL SULF8.5 GM INH; +ALENDRONATE SOD70 MG PO; +INCRUSE ELLI62.5 MCG INH; +MAG-OX 400 MG400 MG PO; +MEDROL DOSE PACK4 MG PO; +MOBIC7.5 MG PO; +MYRBETRIQ25 MG PO; +NEURONTIN 300300 MG PO; +ULTRAM50 MG PO; +[UNRECOGNIZED DRUG - OTHER] TD
== END | disposition home or self-care (01) ==
LOC: D.RAD 13:38
DX: M54.6 Pain in thoracic spine (principal); M25.531 Pain in right wrist; M81.0 Age-related osteoporosis without current pathological fracture

== ENCOUNTER → 2018-04-16 16:23 | Outpatient (CLI) | payer MEDICARE, OTHER ==
[2017-12-21 11:01] VITALS: BMI 21.2
== END | disposition home or self-care (01) ==
LOC: D.RAD 16:23
DX: M54.6 Pain in thoracic spine (principal)

== ENCOUNTER 2018-06-26 01:48 | Inpatient (IN) | payer MEDICARE, OTHER ==
[~2018-06-26] VITALS: Ht 162.6 cm; Wt 60.1 kg
[2018-06-26 02:39] LABS: BASOPHILS 0.4 % (0-2); EOSINOPHILS 2.4 % (0-7); HEMATOCRIT 44.2 % (36.0-48.0); HEMOGLOBIN 14.1 g/dL (12-16); LYMPHOCYTES 23.9 % (15-50); MCH 28.8 pg (26.0-34.0); MCHC 31.9 g/dL (31.0-37.0); MCV 90.4 fL (80.0-100.0); MEAN PLATELET VOLUME 10.7 fL (7.4-10.4); MONOCYTES 10.5 % (2-11); NEUTROPHILS 62.8 % (40-80); RBC 4.89 10x6/uL (4.00-5.40); RDW 15.5 % (11.5-14.5); WBC 7.6 10x3/uL (4.8-10.8)
[2018-06-26 02:41] LABS: PLATELET COUNT 256 10x3/uL (130-400)
[2018-06-26 02:49] LABS: ALBUMIN 3.8 g/dL (3.4-5.0); ANION GAP 15.2 mmol/L (8-16); BILIRUBIN - TOTAL 0.69 mg/dL (0.2-1.3); CALCIUM 9.5 mg/dL (8.5-10.1); CARBON DIOXIDE 30.5 mmol/L (21.0-32.0); CREATININE - SERUM 1.3 mg/dL (0.6-1.3); POTASSIUM - SERUM 3.7 mmol/L (3.5-5.1); PROTEIN - SERUM 7.5 g/dL (6.4-8.2)
[2018-06-26 02:58] LABS: MAGNESIUM - SERUM 1.8 mg/dL (1.8-2.4); THYROID STIMULATING HORMONE 2.8 uIU/mL (0.36-3.74)
[2018-06-26 04:00] LABS: APPEARANCE CLEAR (CLEAR); BILIRUBIN NEGATIVE (NEGATIVE); COLOR YELLOW (YELLOW); GLUCOSE NEGATIVE (NEGATIVE); KETONE NEGATIVE (NEGATIVE); NITRITE NEGATIVE (NEGATIVE); PROTEIN NEGATIVE (NEGATIVE); SPECIFIC GRAVITY 1.015 (1.005-1.020); UROBILINOGEN NORMAL (NORMAL)
[2018-06-26 04:16] LABS: UDS - AMPHET NEGATIVE QUAL (NEGATIVE); UDS - BARB NEGATIVE QUAL (NEGATIVE); UDS - BENZO POSITIVE QUAL (NEGATIVE); UDS - COCAINE NEGATIVE QUAL (NEGATIVE); UDS - OPIATE NEGATIVE QUAL (NEGATIVE); UDS - PCP NEGATIVE QUAL (NEGATIVE); UDS - THC NEGATIVE QUAL (NEGATIVE)
[2018-06-26 06:12] VITALS: BP 171/87; BMI 20.6
[2018-06-26 08:21] VITALS: BP 152/105
[2018-06-26 09:00] LABS: CHOL - HDL RATIO 2.2 ratio (2.3-4.1); LDL-HDL RATIO 0.9 ratio (1.5-3.5); THYROID STIMULATING HORMONE 2.93 uIU/mL (0.36-3.74)
[2018-06-26 20:22] VITALS: BP 114/53
[2018-06-27 06:16] LABS: VITAMIN D 25 HYDROXY 22.7 ng/mL (30.0-100.0)
[2018-06-27 07:26] LABS: RAPID PLASMA REAGIN Non Reactive (Non Reactive)
[2018-06-27 08:59] VITALS: BP 119/59
[2018-06-27 09:17] LABS: FOLATE (FOLIC ACID) - SERUM 11.9 ng/mL (>3.0)
[2018-06-27 14:33] VITALS: BMI 20.6
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
--- NOTE | 2018-06-27 15:40 | PSY ---
PATIENT NAME:DAIANA BARTLETT MEDICAL RECORD: [id number] : 46 LOCATION:[facility] ADMISSION DATE: 06/26/18 ACCOUNT: [id number] PSYCHIATRIC EVALUATION DATE OF EVALUATION: 06/26/18 No dictation. TRANSINT:[id number] Voice Confirmation ID: [id number] DOCUMENT ID: [id number] DELTA ESCOTO MD at 1540 CC: [id number] DICTATION DATE: 06/26/18 171 ENTERPRISE ARCHITECT MANAGER: 06/26/18 1920 ADM IN [facility] [address] [place] [address]
[2018-06-27 22:55] VITALS: BP 97/52
[2018-06-28 08:00] VITALS: BP 117/55
--- NOTE | 2018-06-28 11:00 | PN ---
PATIENT:DAIANA BARTLETT MEDICAL RECORD: [id number] LOCATION:[facility] ADMISSION DATE: 06/26/18 PROGRESS NOTE DATE OF SERVICE: 06/27/2018 SUBJECTIVE: The patient's case was discussed with staff. She has no new complaint. OBJECTIVE: The patient is in good behavioral control with limited insight about her condition. She is somewhat somatic. ASSESSMENT: 1. Senile dementia of the Alzheimer's type with behavioral disturbances. 2. Bipolar disorder. PLAN: Current medicines and therapies have been reviewed and will be maintained. Long-term prognosis is guarded. TRANSINT:[id number] Voice Confirmation ID: [id number] DOCUMENT ID: [id number] DELTA ESCOTO MD at 1100 CC: [id number] DICTATION DATE: 06/27/18 1623 NATURAL GAS BASIS TRADER: 06/28/18 0038 ADM IN [place] [id number] [place] [id number]
[2018-06-29 00:35] VITALS: BP 111/66
[2018-06-29 07:00] VITALS: BP 123/68
--- NOTE | 2018-06-29 10:05 | PN ---
PATIENT:DAIANA BARTLETT MEDICAL RECORD: [id number] LOCATION:[facility] ADMISSION DATE: 06/26/18 PROGRESS NOTE DATE OF SERVICE: 06/28/2018 SUBJECTIVE: The patient's case was discussed with staff. She has no new complaint. OBJECTIVE: The patient is fairly limited in her insight. I am going to taper her off of the Lyrica for lack of clinical indication. I am also going to increase the dose of her Depakote. Her long-term prognosis is guarded. TRANSINT:[id number] Voice Confirmation ID: [id number] DOCUMENT ID: [id number] DELTA ESCOTO MD at 1005 CC: [id number] DICTATION DATE: 06/28/18 1158 CLINICAL TRANSPLANT COORDINATOR: 06/28/18 1311 ADM IN [facility] [address] [place] [address]
[2018-06-29 20:22] VITALS: BP 130/61
[2018-06-30 07:00] VITALS: BP 108/58
--- NOTE | 2018-06-30 15:11 | PN ---
PATIENT:DAIANA BARTLETT MEDICAL RECORD: [id number] LOCATION:[facility] ADMISSION DATE: 06/26/18 PROGRESS NOTE DATE OF SERVICE: 06/29/2018 SUBJECTIVE: The patient's case was discussed with staff. She has no new complaint. OBJECTIVE: The patient is in good behavioral control with poor insight about her condition. She tolerates her medicines well. ASSESSMENT: 1. Senile dementia of the Alzheimer's type with behavioral disturbances. 2. Bipolar disorder. PLAN: Brief supportive and educational interventions were made. The patient is improving. Her long-term prognosis is guarded. TRANSINT:[id number] Voice Confirmation ID: [id number] DOCUMENT ID: [id number] DELTA ESCOTO MD at 1511 CC: [id number] DICTATION DATE: 06/29/18 1129 LA[address] P[address]TER AW[address]: 06/29/18 1851 ADM IN [facility] [address] [place] [id number]
[2018-06-30 20:32] VITALS: BP 132/57
[2018-07-01 07:00] VITALS: BP 124/59
[2018-07-01 11:51] VITALS: Ht 162.6 cm; Wt 60.1 kg
--- NOTE | 2018-07-01 15:34 | PN ---
PATIENT:DAIANA BARTLETT MEDICAL RECORD: [id number] LOCATION:[facility] ADMISSION DATE: 06/26/18 PROGRESS NOTE DATE OF SERVICE: 06/30/2018 SUBJECTIVE: The patient's case was discussed with staff. She has no new complaint. OBJECTIVE: The patient has shown improvement with the use of the Depakote. She has not been significantly disorganized. She is participating in treatment well. ASSESSMENT: 1. Senile dementia of the Alzheimer's type with behavioral disturbances. 2. Bipolar disorder. PLAN: The patient will be maintained on current medicines that have been reviewed. Her long-term prognosis is guarded. Follow up will be with her primary care physician. TRANSINT:[id number] Voice Confirmation ID: [id number] DOCUMENT ID: [id number] DELTA ESCOTO MD at 1534 CC: [id number] DICTATION DATE: 06/30/18 1551 ADVANCED MANUFACTURING ASSOCIATE: 06/30/18 1845 ADM IN [place] [id number] [place] [address]
[2018-07-01 19:45] VITALS: BP 145/58
--- NOTE | 2018-07-02 15:01 | PN ---
PATIENT:DAIANA BARTLETT MEDICAL RECORD: [id number] LOCATION:[facility] ADMISSION DATE: 06/26/18 PROGRESS NOTE DATE OF SERVICE: 07/01/2018 SUBJECTIVE: The patient's case was discussed with staff. She has no new complaint. OBJECTIVE: The patient is tolerating her medications well. She has fairly limited insight about her situation. She continues to make delusional statements about her . ASSESSMENT: Senile dementia of the Alzheimer's type with behavioral disturbances. PLAN: Current medicines have been reviewed and will be maintained. Long-term prognosis is guarded. Her Depakote level was subtherapeutic 4 days ago and I will recheck it. TRANSINT:[id number] Voice Confirmation ID: [id number] DOCUMENT ID: [id number] DELTA ESCOTO MD at 1501 CC: [id number] DICTATION DATE: 07/01/18 1555 HAM BONER: 07/01/[address] [facility] [address] [place] [address]
[2018-07-02 20:18] VITALS: BP 134/66
--- NOTE | 2018-07-03 08:28 | PN ---
PATIENT:DAIANA BARTLETT MEDICAL RECORD: [id number] LOCATION:[facility] ADMISSION DATE: 06/26/18 PROGRESS NOTE DATE OF SERVICE: 07/02/2018 SUBJECTIVE: The patient's case was discussed with staff. She has no new complaint. OBJECTIVE: The patient is tolerating her current medications reasonably well. She denies any intent to harm herself or others. She became very agitated and even paranoid when her was here yesterday. ASSESSMENT: 1. Bipolar disorder. 2. Senile dementia of the Alzheimer's type with behavioral disturbances. PLAN: The patient has a therapeutic Depakote level of 52. I am satisfied with her mood lability or more accurately absence of mood lability right now. I am going to start her on a low dose of scheduled Haldol with the intention of changing her over to something on a scheduled IM basis or long-acting basis prior to discharge. TRANSINT:[id number] Voice Confirmation ID: [id number] DOCUMENT ID: [id number] DELTA ESCOTO MD at 0828 CC: [id number] DICTATION DATE: 07/02/18 1621 ANDROID PROGRAMMER: 07/02/18 1646 ADM IN [facility] [address] [place] [address]
[2018-07-03 09:30] VITALS: BP 134/66
[2018-07-03 20:00] VITALS: BP 141/63
[2018-07-04 09:36] VITALS: BP 151/65
[2018-07-04] MEDS ORDERED: DEPAKOTE500 MG PO (17:23)
[2018-07-04] MEDS ORDERED: LASIX40 MG PO (17:24)
[2018-07-04] MEDS ORDERED: K-DUR20 MEQ PO (17:24)
[2018-07-04] MEDS ORDERED: PROTONIX40 MG PO (17:24)
[2018-07-04] MEDS ORDERED: VITAMIN D5000 UNIT PO (17:24)
[2018-07-04] MEDS ORDERED: Senokot-S Tablet PO (17:24)
[2018-07-04 20:19] VITALS: BP 144/70
[2018-07-05 09:21] VITALS: BP 126/67
--- NOTE | 2018-07-05 12:33 | PN ---
PATIENT:DAIANA BARTLETT MEDICAL RECORD: [id number] LOCATION:[facility] ADMISSION DATE: 06/26/18 PROGRESS NOTE DATE OF SERVICE: 07/03/2018 SUBJECTIVE: The patient's case was discussed with staff. She has no new complaint. OBJECTIVE: The patient is in good behavioral control. She is not delusional at this point. ASSESSMENT: Bipolar disorder. PLAN: The patient's is going to visit this afternoon. I hope the visit goes well. If it does, then I will consider discharging her soon. TRANSINT:[id number] Voice Confirmation ID: [id number] DOCUMENT ID: [id number] DELTA ESCOTO MD at 1233 CC: [id number] DICTATION DATE: 07/03/18 1612 BRASSWIND INSTRUMENT REPAIRER: 07/03/18 1804 ADM IN [facility] [address] [place] [address]
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
--- NOTE | 2018-07-06 12:21 | PN ---
PATIENT:DAIANA BARTLETT MEDICAL RECORD: [id number] LOCATION:[facility] ADMISSION DATE: 06/26/18 PROGRESS NOTE DATE OF SERVICE: 07/05/2018 SUBJECTIVE: The patient's case was discussed with staff. She has no new complaint. OBJECTIVE: The patient denies intent to harm herself or others. She generally tolerates her medicines well. She says that she is going to go home with her and that she thinks things will be fine as long as he stays in his bedroom and she stays in her and they do not have to interact. Once again, when asked about why they do not divorce or move away from each other, she says she loves him. Followup is going to be with her primary care physician in the [facility]. TRANSINT:[id number] Voice Confirmation ID: [id number] DOCUMENT ID: [id number] DELTA ESCOTO MD at 1221 CC: [id number] DICTATION DATE: 07/05/18 124 PAVING RAMMER: 07/05/182056 DIS IN 07/05/18 [facility] [address] [place] [address]
== END 2018-07-05 13:05 | disposition home or self-care (01) | DRG 57 ==
LOC: D.ER 01:48 → D.PSYCH 03:04 → D.EDHOLD 03:04 → D.PSYCH 04:03
PROVIDERS: Emergency Medicine; ADMIT Psychiatry & Neurology Psychiatry; ATTEND Psychiatry & Neurology Psychiatry
DX: G30.1 Alzheimer's disease with late onset (principal); F02.81 Dementia in other diseases classified elsewhere, unspecified severity, with behavioral disturbance; M19.90 Unspecified osteoarthritis, unspecified site; I10 Essential (primary) hypertension; F31.9 Bipolar disorder, unspecified; Z91.81 History of falling; J43.9 Emphysema, unspecified; N32.81 Overactive bladder; M81.0 Age-related osteoporosis without current pathological fracture; M79.7 Fibromyalgia; J30.9 Allergic rhinitis, unspecified; R53.81 Other malaise; I25.10 Atherosclerotic heart disease of native coronary artery without angina pectoris; E78.5 Hyperlipidemia, unspecified; K59.00 Constipation, unspecified; E55.9 Vitamin D deficiency, unspecified

== ENCOUNTER 2019-02-17 09:35 | Emergency (ER) | payer MEDICARE, OTHER ==
[~2019-02-17] VITALS: Ht 162.6 cm; Wt 59.1 kg
[~2019-02-17 09:35] MED LIST changes: +K-DUR20 MEQ PO; +LASIX40 MG PO; +PROTONIX40 MG PO; +Senokot-S Tablet PO; +VITAMIN D5000 UNIT PO
[2019-02-17 09:38] VITALS: Ht 162.6 cm; Wt 59.1 kg
[2019-02-17] MEDS ORDERED: CYCLOBENZAPRINE10 MG PO (09:45)
[2019-02-17] MEDS ORDERED: LATUDA40 MG PO ×2 (09:45→09:46)
[2019-02-17] MEDS ORDERED: MYRBETRIQ25 MG PO (09:46)
[2019-02-17] MEDS ORDERED: SMZ-TMP DS 800-1 TAB PO (09:47)
[2019-02-17] MEDS ORDERED: TEMAZEPAM30 MG PO (09:47)
[2019-02-17] MEDS ORDERED: NITROSTAT0.4 MG SL (09:47)
[2019-02-17] MEDS ORDERED: PREDNISONE20 MG PO (09:48)
[2019-02-17] MEDS ORDERED: VIBRAMYCIN 100100 MG PO (09:49)
[2019-02-17 10:26] LABS: BASOPHILS 0.3 % (0-2); EOSINOPHILS 2.4 % (0-7); HEMATOCRIT 36.8 % (36.0-48.0); HEMOGLOBIN 11.4 g/dL (12-16); IMMATURE GRANULOCYTES 0.1 % (0-5); LYMPHOCYTES 18.8 % (15-50); MCH 30.2 pg (26.0-34.0); MCV 97.6 fL (80.0-100.0); MONOCYTES 12.6 % (2-11); NEUTROPHILS 65.8 % (40-80); PLATELET COUNT 233 10x3/uL (130-400); RBC 3.77 10x6/uL (4.00-5.40); RDW 16.4 % (11.5-14.5); WBC 7.9 10x3/uL (4.8-10.8)
[2019-02-17 10:36] LABS: CALC OSMOLALITY 275 mosm/kg (275-300); CALCIUM 9.1 mg/dL (8.5-10.1); CARBON DIOXIDE 34.5 mmol/L (21.0-32.0); CHLORIDE - SERUM 99 mmol/L (98-107); GLUCOSE 132 mg/dL (74-106); POTASSIUM - SERUM 4.9 mmol/L (3.5-5.1); SODIUM 136 mmol/L (136-145); UREA NITROGEN 18 mg/dL (7-18); eGFR NON AFRICAN AMERICAN 58 mL/min (90-120)
[2019-02-17 11:01] LABS: ALBUMIN 3.6 g/dL (3.4-5.0); ALKALINE PHOSPHATASE 62 U/L (46-116); ALT (SGPT) 18 U/L (10-68); BILIRUBIN - TOTAL 0.36 mg/dL (0.2-1.3); PRO BNP 4730 pg/mL (0-125); PROTEIN - SERUM 7.5 g/dL (6.4-8.2); TROPONIN-I < 0.017 ng/mL (0.000-0.060)
[2019-02-17 12:14] VITALS: BP 133/82
[2019-02-17 12:34] LABS: APPEARANCE CLEAR (CLEAR); BILIRUBIN NEGATIVE (NEGATIVE); COLOR YELLOW (YELLOW); GLUCOSE NEGATIVE (NEGATIVE); KETONE NEGATIVE (NEGATIVE); NITRITE NEGATIVE (NEGATIVE); PROTEIN NEGATIVE (NEGATIVE); UROBILINOGEN NORMAL (NORMAL)
[2019-02-17] MEDS ORDERED: STERAPRED DS 1010 MG PO (12:55)
[2019-02-17] MEDS ORDERED: AUGMENTIN 875-11 TAB PO (12:55)
== END 2019-02-17 13:10 | disposition home or self-care (01) ==
LOC: D.ER 09:35
PROVIDERS: Family Medicine
DX: J44.1 Chronic obstructive pulmonary disease with (acute) exacerbation (principal); Z72.0 Tobacco use; R06.02 Shortness of breath; R06.2 Wheezing; I10 Essential (primary) hypertension